=== PATIENT | male | born 1950 | race Caucasian/White ===

== ENCOUNTER 2020-05-06 04:56 | Inpatient (IN) | payer MEDICARE ==
[2020-05-06] MEDS ORDERED: NITROGLYCERIN SL TABS 0.4 MG TAB SUBLINGUAL STA (05:00)
[2020-05-06] MEDS ORDERED: MORPHINE SULFATE 4 MG/ML SYRINGE IV STA (05:00)
[2020-05-06 05:01] LABS: Glucose,Whole Blood 219 mg/dL (75-99)
[2020-05-06 05:20] LABS: Basophils # (A) 0.1 k/uL (0-0.2); Basophils % (A) 1 %; Eosinophils # (A) 0.4 k/uL (0-0.7); Eosinophils % (A) 3 %; HCT 41.3 % (39.0-53.0); HGB 12.6 gm/dL (13.0-17.5); Lymphocytes # (A) 1.3 k/uL (1.0-4.8); Lymphocytes % (A) 9 %; MCH 31.7 pg (25.0-35.0); MCHC 30.4 g/dL (31.0-37.0); Macrocytosis Slight; Mean Platelet Volume 8.5; Monocytes # (A) 0.5 k/uL (0-1.0); Monocytes % (A) 3 %; Neutrophils # (A) 13.2 k/uL (1.3-7.7); Neutrophils % (A) 84 %; Platelet Count 184 k/uL (150-450); RBC 3.97 m/uL (4.30-5.90); RDW 13.2 % (11.5-15.5); WBC 15.6 k/uL (3.8-10.6)
--- NOTE | 2020-05-06 05:27 | XR ---
EXAM: XR Chest, 1 View CLINICAL HISTORY: ITS.REASON XR Reason: dyspnea TECHNIQUE: Frontal view of the chest. COMPARISON: No relevant prior studies available. FINDINGS: Lungs: Increased interstitial markings. Mild atelectasis or small amount of fissural fluid in the right mid lung. No focal consolidation. Pleural space: Unremarkable. No pneumothorax. Heart: Heart size upper normal. Mediastinum: Unremarkable. Bones/joints: Unremarkable. Vasculature: Mild central vascular congestion. IMPRESSION: Findings may represent vascular congestion and mild interstitial edema.
[2020-05-06 05:31] LABS: Albumin 4.3 g/dL (3.5-5.0); Calcium 8.8 mg/dL (8.4-10.2); Magnesium 1.7 mg/dL (1.6-2.3); Total Bilirubin 0.5 mg/dL (0.2-1.3); Total Protein 6.9 g/dL (6.3-8.2)
[2020-05-06 05:49] LABS: INR 0.9 (<1.2); Partial Thromboplastin Time 22.3 sec (22.0-30.0); Prothrombin Time 9.4 sec (9.0-12.0)
[2020-05-06] MEDS ORDERED: FUROSEMIDE 10 MG/ML 2 ML VIAL IV STA (06:13)
--- NOTE | 2020-05-06 06:19 | ED ---
SOB HPI - General Chief Complaint: Shortness of Breath Stated Complaint: SELENE Time Seen by Provider: 05/06/20 04:58 Source: patient, EMS Mode of arrival: EMS Limitations: no limitations - History of Present Illness Initial Comments: this patient is 70-year-old man brought by ambulance to be evaluated for acute onset of dyspnea us morning. The patient had gone to bed feeling relatively well, and then woke up with shortness of breath that rapidly worsened. They called EMS who arrived to find him with pulse oximetry readings in the 70s. The patient was to, tachycardic, diaphoretic. They placed patient on CPAP and gave albuterol as well as steroid. Patient denies previous history of lung disease. MD Complaint: shortness of breath Onset/Timin -: hour(s) Severity scale (1-10): 0 Improves With: nothing Worsens With: exertion Associated Symptoms: denies other symptoms Treatments Prior to Arrival: oxygen, bronchodilator - Related Data Home Oxygen Therapy: No Home Medications Medication Instructions Recorded Confirmed Aspirin EC [Ecotrin Low Dose] 81 mg PO DAILY 05/06/20 05/06/20 Cinnamon Bark [Cinnamon] 500 mg PO DAILY 05/06/20 05/06/20 Glimepiride [Amaryl] 2 mg PO DAILY@1200 05/06/20 05/06/20 Simvastatin [Zocor] 20 mg PO DAILY@1700 05/06/20 05/06/20 lisinopriL [Zestril] 5 mg PO DAILY@0900 05/06/20 05/06/20 metFORMIN HCL [Glucophage] 1,000 mg PO BID@1200,2300 05/06/20 05/06/20 Allergies Allergy/AdvReac Type Severity Reaction Status Date / Time No Known Allergies Allergy Verified 05/06/20 07:12 Review of Systems ROS Statement: Those systems with pertinent positive or pertinent negative responses have been documented in the HPI. ROS Other: All systems not noted in ROS Statement are negative. Constitutional: Denies: fever, chills Respiratory: Reports: dyspnea. Denies: cough, wheezes, hemoptysis Cardiovascular: Reports: palpitations, orthopnea. Denies: chest pain, edema, syncope Gastrointestinal: Denies: abdominal pain, nausea, vomiting, diarrhea Genitourinary: Denies: dysuria, frequency Skin: Denies: rash Neurological: Denies: headache, weakness, numbness Psychiatric: Reports: anxiety Past Medical History Past Medical History: Diabetes Mellitus History of Any Multi-Drug Resistant Organisms: None Reported Past Surgical History: Tonsillectomy Additional Past Surgical History / Comment(s): orthopedic surgery Past Psychological History: No Psychological Hx Reported Smoking Status: Current some day smoker Past Alcohol Use History: None Reported Past Drug Use History: None Reported General Exam Limitations: no limitations General appearance: alert, in no apparent distress Head exam: Present: atraumatic, normocephalic Eye exam: Present: normal appearance. Absent: scleral icterus, conjunctival injection Neck exam: Present: normal inspection Respiratory exam: Present: respiratory distress, wheezes, accessory muscle use, decreased breath sounds. Absent: rales, rhonchi, stridor, chest wall tenderness Cardiovascular Exam: Present: normal rhythm, tachycardia, systolic murmur (harsh grade 4/6 systolic ejection murmur consistent with aortic stenosis). Absent: diastolic murmur, rubs, gallop GI/Abdominal exam: Present: soft. Absent: distended, tenderness, guarding, rebound, rigid, mass Extremities exam: Present: normal inspection, normal capillary refill. Absent: pedal edema, calf tenderness Back exam: Present: normal inspection. Absent: CVA tenderness (R), CVA tenderness (L) Neurological exam: Present: alert Skin exam: Present: warm, intact, diaphoretic. Absent: rash Course Vital Signs 05/06/20 05/06/20 05/06/20 04:56 05:07 05:20 Temperature 97.7 F Pulse Rate 102 H 93 Respiratory 26 H 20 20 Rate Blood Pressure 158/88 109/64 O2 Sat by Pulse 94 L 99 Oximetry 05/06/20 05/06/20 05/06/20 05:40 06:00 06:40 Temperature Pulse Rate 94 89 77 Respiratory 18 18 18 Rate Blood Pressure 94/58 99/59 105/63 O2 Sat by Pulse 99 99 98 Oximetry 05/06/20 05/06/20 05/06/20 06:48 07:00 08:00 Temperature Pulse Rate 84 74 Respiratory 19 18 18 Rate Blood Pressure 105/77 119/64 O2 Sat by Pulse 98 98 96 Oximetry 05/06/20 05/06/20 05/06/20 09:00 10:00 12:47 Temperature Pulse Rate 74 74 68 Respiratory 18 18 18 Rate Blood Pressure 125/74 126/69 125/70 O2 Sat by Pulse 97 96 94 L Oximetry Medical Decision Making - Lab Data Result diagrams: 05/06/20 05:05 05/06/20 05:05 Lab Results 05/06/20 05/06/20 05/06/20 Range/Units 04:58 05:05 05:05 WBC 15.6 H (3.8-10.6) k/uL RBC 3.97 L (4.30-5.90) m/uL Hgb 12.6 L (13.0-17.5) gm/dL Hct 41.3 (39.0-53.0) % MCV 104.0 H (80.0-100.0) fL MCH 31.7 (25.0-35.0) pg MCHC 30.4 L (31.0-37.0) g/dL RDW 13.2 (11.5-15.5) % Plt Count 184 (150-450) k/uL MPV 8.5 Neutrophils % 84 % Lymphocytes % 9 % Monocytes % 3 % Eosinophils % 3 % Basophils % 1 % Neutrophils # 13.2 H (1.3-7.7) k/uL Lymphocytes # 1.3 (1.0-4.8) k/uL Monocytes # 0.5 (0-1.0) k/uL Eosinophils # 0.4 (0-0.7) k/uL Basophils # 0.1 (0-0.2) k/uL Macrocytosis Slight PT 9.4 (9.0-12.0) sec INR 0.9 (<1.2) APTT 22.3 (22.0-30.0) sec D-Dimer 0.86 H (<0.60) mg/L FEU Sodium (137-145) mmol/L Potassium (3.5-5.1) mmol/L Chloride (98-107) mmol/L Carbon Dioxide (22-30) mmol/L Anion Gap mmol/L BUN (9-20) mg/dL Creatinine (0.66-1.25) mg/dL Est GFR (CKD-EPI)AfAm (>60 ml/min/1.73 sqM) Est GFR (CKD-EPI)NonAf (>60 ml/min/1.73 sqM) Glucose (74-99) mg/dL POC Glucose (mg/dL) 219 H (75-99) mg/dL POC Glu Media Coordinator ID Kelli Delaney Plasma Lactic Acid Son (0.7-2.0) mmol/L Calcium (8.4-10.2) mg/dL Magnesium (1.6-2.3) mg/dL Total Bilirubin (0.2-1.3) mg/dL AST (17-59) U/L ALT (4-49) U/L Alkaline Phosphatase (38-126) U/L Troponin I (0.000-0.034) ng/mL NT-Pro-B Natriuret Pep pg/mL Total Protein (6.3-8.2) g/dL Albumin (3.5-5.0) g/dL 05/06/20 05/06/20 05/06/20 Range/Units 05:05 05:05 05:05 WBC (3.8-10.6) k/uL RBC (4.30-5.90) m/uL Hgb (13.0-17.5) gm/dL Hct (39.0-53.0) % MCV (80.0-100.0) fL MCH (25.0-35.0) pg MCHC (31.0-37.0) g/dL RDW (11.5-15.5) % Plt Count (150-450) k/uL MPV Neutrophils % % Lymphocytes % % Monocytes % % Eosinophils % % Basophils % % Neutrophils # (1.3-7.7) k/uL Lymphocytes # (1.0-4.8) k/uL Monocytes # (0-1.0) k/uL Eosinophils # (0-0.7) k/uL Basophils # (0-0.2) k/uL Macrocytosis PT (9.0-12.0) sec INR (<1.2) APTT (22.0-30.0) sec D-Dimer (<0.60) mg/L FEU Sodium 141 (137-145) mmol/L Potassium 5.0 (3.5-5.1) mmol/L Chloride 112 H (98-107) mmol/L Carbon Dioxide 21 L (22-30) mmol/L Anion Gap 8 mmol/L BUN 27 H (9-20) mg/dL Creatinine 1.19 (0.66-1.25) mg/dL Est GFR (CKD-EPI)AfAm 71 (>60 ml/min/1.73 sqM) Est GFR (CKD-EPI)NonAf 61 (>60 ml/min/1.73 sqM) Glucose 243 H (74-99) mg/dL POC Glucose (mg/dL) (75-99) mg/dL POC Glu Media Coordinator ID Plasma Lactic Acid Son 1.2 (0.7-2.0) mmol/L Calcium 8.8 (8.4-10.2) mg/dL Magnesium 1.7 (1.6-2.3) mg/dL Total Bilirubin 0.5 (0.2-1.3) mg/dL AST 23 (17-59) U/L ALT 16 (4-49) U/L Alkaline Phosphatase 69 (38-126) U/L Troponin I 0.040 H* (0.000-0.034) ng/mL NT-Pro-B Natriuret Pep pg/mL Total Protein 6.9 (6.3-8.2) g/dL Albumin 4.3 (3.5-5.0) g/dL 05/06/20 Range/Units 05:05 WBC (3.8-10.6) k/uL RBC (4.30-5.90) m/uL Hgb (13.0-17.5) gm/dL Hct (39.0-53.0) % MCV (80.0-100.0) fL MCH (25.0-35.0) pg MCHC (31.0-37.0) g/dL RDW (11.5-15.5) % Plt Count (150-450) k/uL MPV Neutrophils % % Lymphocytes % % Monocytes % % Eosinophils % % Basophils % % Neutrophils # (1.3-7.7) k/uL Lymphocytes # (1.0-4.8) k/uL Monocytes # (0-1.0) k/uL Eosinophils # (0-0.7) k/uL Basophils # (0-0.2) k/uL Macrocytosis PT (9.0-12.0) sec INR (<1.2) APTT (22.0-30.0) sec D-Dimer (<0.60) mg/L FEU Sodium (137-145) mmol/L Potassium (3.5-5.1) mmol/L Chloride (98-107) mmol/L Carbon Dioxide (22-30) mmol/L Anion Gap mmol/L BUN (9-20) mg/dL Creatinine (0.66-1.25) mg/dL Est GFR (CKD-EPI)AfAm (>60 ml/min/1.73 sqM) Est GFR (CKD-EPI)NonAf (>60 ml/min/1.73 sqM) Glucose (74-99) mg/dL POC Glucose (mg/dL) (75-99) mg/dL POC Glu Media Coordinator ID Plasma Lactic Acid Son (0.7-2.0) mmol/L Calcium (8.4-10.2) mg/dL Magnesium (1.6-2.3) mg/dL Total Bilirubin (0.2-1.3) mg/dL AST (17-59) U/L ALT (4-49) U/L Alkaline Phosphatase (38-126) U/L Troponin I (0.000-0.034) ng/mL NT-Pro-B Natriuret Pep 1400 pg/mL Total Protein (6.3-8.2) g/dL Albumin (3.5-5.0) g/dL - EKG Data -: EKG Interpreted by Ia EKG shows normal: sinus rhythm, axis (left axis deviation), intervals (normal), QRS complexes (possible old septal infarct.), ST-T waves (normal) Rate: tachycardia (rate 102 BPM) Critical Care Time Critical Care Time: Yes (40 minutes) Disposition Clinical Impression: Congestive heart failure Disposition: ADMITTED IP TO THIS HOSP Condition: Fair Is patient prescribed a controlled substance at d/c from ED?: No
[2020-05-06 06:21] LABS: D-Dimer 0.86 mg/L FEU (<0.60)
--- NOTE | 2020-05-06 11:23 | CT ---
EXAMINATION TYPE: CT chest angio for PE DATE OF EXAM: 05/06/2020 COMPARISON: Chest x-ray earlier today. HISTORY: Shortness of breath CT DLP: 371.2 mGycm Automated exposure control for dose reduction was used. CONTRAST: CT Chest for pulmonary embolism performed with with IV Contrast, patient injected with 100 mL of Isov ue 370. FINDINGS: LUNGS: There are tiny bilateral pleural effusions with mild/moderate bibasilar atelectasis and/or con solidation. Upper to mid lungs are clear. No pneumothorax seen bilaterally. No suspicious masses. MEDIASTINUM: There is suboptimal bolus with near equal contrast in the right and left heart systems b ut no convincing CT evidence for acute pulmonary embolism. Satisfactory enhancement of aorta without aneurysm or dissection. Prominent bilateral hilar lymph nodes. Some prominent but subcentimeter media stinal lymph nodes. Borderline enlarged subcarinal lymph node. Cardiomegaly is present. Moderate left atrial and left ventricular dilatation. No pericardial effusion. Main pulmonary artery measures 3.[address] findings consistent with underlying pulmonary artery hypertension. OTHER: Bilateral subareolar gynecomastia. Underlying scoliosis. Multilevel spurring in the spine IMPRESSION: 1. No CT evidence for acute pulmonary embolism. 2. Cardiomegaly with tiny bilateral pleural effusions. Correlate for CHF exacerbation. Underlying pul monary artery hypertension and moderate left atrial and ventricular dilatation noted. [id number] e bibasilar atelectasis and/or limited acute infiltrate noted. Correlate clinically.
[2020-05-06] MEDS ORDERED: ASPIRIN 325 MG TAB PO STA (12:29)
--- NOTE | 2020-05-06 12:31 | P.CRDCN ---
History of Present Illness Consult date: 05/06/20 Chief complaint: shortness of breath History of present illness: This is a very pleasant 70-year-old gentleman who does not follow with any card iologist on regular basis with diabetes and hypertension and dyslipidemia and significant family history of coronary artery disease was brought to the emergency department by ambulance with shortness of breath. 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 No symptoms of chest pain or chest discomfort and no symptoms of arm or neck or shoulder discomfort and no abdominal discomfort. He did not feel good his called ambulance and he was brought to the emergency department. By ambulance patient was hypoxic with pulse oximetry reading around 70%. He was also slightly tachycardic and also he was diaphoretic. The patient is not aware of any history of coronary artery disease or congestive heart failure but she was told that he does have "heart murmur". No dizziness or lightheadedness and no feeling of heart racing or fluttering or syncope. The EKG showed sinus rhythm and it was sinus tachycardia when he presented to the emergency department without any ischemic ST or T-wave abnormalities. The troponin came in to be abnormal. The chest x-ray showed findings consistent with fluid overload. The computed tomography scan of the chest showed no PE but also finding with small bilateral pleural effusion. Also there is evidence of pulmonary hypertension. The rest of his blood work overall came in to be unremarkable. Currently the patient is feeling better and he is also hemodynamically stable. He denies any symptoms of chest pain or chest discomfort at this point and he stated that he is not short of breath laying flat in bed. We consulted to see the patient because of the abnormal troponin. The patient does have fairly significant family history of coronary artery disease involving his father as well as his brother. Beside that he does have multiple risk factors for coronary artery disease. On examination he does have very significant systolic murmur at the right and left upper sternal border consistent with aortic stenosis at least in the moderate range. There is diminished in the intensity of S2. At this point I'm going to start the patient on aspirin as well as heparin IV. We'll consider starting the patient on anti- ischemic medication with beta mary and also add statin. Obtain an echocardiogram was Doppler to assess ejection fraction and the severity of aortic stenosis. Consider coronary angiogram and probably consider JAYSON to evaluate the aortic valve down the line. Also on examination he does have mild bilateral expiratory wheezing with diminished breathing sounds mainly on the left compared to the right. Past Medical History Past Medical History: Diabetes Mellitus History of Any Multi-Drug Resistant Organisms: None Reported Past Surgical History: Tonsillectomy Additional Past Surgical History / Comment(s): orthopedic surgery Past Psychological History: No Psychological Hx Reported Smoking Status: Current some day smoker Past Alcohol Use History: None Reported Past Drug Use History: None Reported Medications and Allergies Home Medications Medication Instructions Recorded Confirmed Type Aspirin EC [Ecotrin Low Dose] 81 mg PO DAILY 05/06/20 05/06/20 History Cinnamon Bark [Cinnamon] 500 mg PO DAILY 05/06/20 05/06/20 History Glimepiride [Amaryl] 2 mg PO DAILY@1200 05/06/20 05/06/20 History Simvastatin [Zocor] 20 mg PO DAILY@1700 05/06/20 05/06/20 History lisinopriL [Zestril] 5 mg PO DAILY@0900 05/06/20 05/06/20 History metFORMIN HCL [Glucophage] 1,000 mg PO BID@1200,2300 05/06/20 05/06/20 History Allergies Allergy/AdvReac Type Severity Reaction Status Date / Time No Known Allergies Allergy Verified 05/06/20 07:12 Physical Exam Vitals: Vital Signs Temp Pulse Resp BP Pulse Ox 05/06/20 10:00 74 18 126/69 96 05/06/20 09:00 74 18 125/74 97 05/06/20 08:00 74 18 119/64 96 05/06/20 07:00 84 18 105/77 98 05/06/20 06:48 19 98 05/06/20 06:40 77 18 105/63 98 05/06/20 06:00 89 18 99/59 99 05/06/20 05:40 94 18 94/58 99 05/06/20 05:20 93 20 109/64 99 05/06/20 05:07 20 05/06/20 04:56 97.7 F 102 H 26 H 158/88 94 L Intake and Output 05/05/20 05/06/20 05/06/20 22:59 06:59 14:59 Other: Weight 84.822 kg - Constitutional General appearance: no acute distress - Respiratory Respiratory: bilateral: wheezing - Cardiovascular Rhythm: regular Heart sounds: normal: S1, S2 Abnormal Heart Sounds: systolic murmur Results 05/06/20 05:05 05/06/20 05:05 Cardiac Enzymes 05/06/20 05/06/20 05/06/20 Range/Units 05:05 05:05 07:43 AST 23 (17-59) U/L Troponin I 0.040 H* 0.111 H* (0.000-0.034) ng/mL 05/06/20 Range/Units 10:46 AST (17-59) U/L Troponin I 0.128 H* (0.000-0.034) ng/mL Coagulation 05/06/20 Range/Units 05:05 PT 9.4 (9.0-12.0) sec APTT 22.3 (22.0-30.0) sec CBC 05/06/20 Range/Units 05:05 WBC 15.6 H (3.8-10.6) k/uL RBC 3.97 L (4.30-5.90) m/uL Hgb 12.6 L (13.0-17.5) gm/dL Hct 41.3 (39.0-53.0) % Plt Count 184 (150-450) k/uL Comprehensive Metabolic Panel 05/06/20 Range/Units 05:05 Sodium 141 (137-145) mmol/L Potassium 5.0 (3.5-5.1) mmol/L Chloride 112 H (98-107) mmol/L Carbon Dioxide 21 L (22-30) mmol/L BUN 27 H (9-20) mg/dL Creatinine 1.19 (0.66-1.25) mg/dL Glucose 243 H (74-99) mg/dL Calcium 8.8 (8.4-10.2) mg/dL AST 23 (17-59) U/L ALT 16 (4-49) U/L Alkaline Phosphatase 69 (38-126) U/L Total Protein 6.9 (6.3-8.2) g/dL Albumin 4.3 (3.5-5.0) g/dL Current Medications Generic Name Dose Route Start Last Admin Trade Name Freq PRN Reason Stop Dose Admin Aspirin 325 mg 05/07/20 09:00 Aspirin 325 Mg Tab PO DAILY ALIVIA Heparin Sodium/Sodium Chloride 250 mls @ 10.009 mls/hr 05/06/20 12:15 25,000 unit/ Sodium Chloride IV .Q24H [facility] Protocol 11.8 UNITS/KG/HR Sodium Chloride 10 ml 05/06/20 09:00 05/06/20 08:12 Sodium Chloride 0.9% Flush 10 Ml Syringe IV 10 ml BID [facility] Administration Intake and Output 05/05/20 05/06/20 05/06/20 22:59 06:59 14:59 Other: Weight 84.822 kg 05/06/20 05:05 05/06/20 05:05 Assessment and Plan Assessment: Assessment #1 heart failure likely secondary to aortic stenosis #2 acute non-ST patient myocardial infarction #3 multiple risk factors including diabetes and hypertension and dyslipidemia #4 family history of CAD Plan #1 add heparin to the current medical regimen #2 add aspirin to the current medical regimen #3 consider adding beta mary as well as a statin #4 obtain an echocardiogram was Doppler #5 consider transesophageal echocardiogram and heart catheterization #6 follow-up with the patient
[2020-05-06] MEDS: HEPARIN SOD,PORK IN 0.45% NACL 25,000 UNIT in 0.45% NACL 1 250ML.BAG IV SCH (12:45)
[2020-05-06] MEDS ORDERED: ATORVASTATIN 10 MG TAB PO SCH (17:00)
[2020-05-06 17:03] LABS: Glucose,Whole Blood 291 mg/dL (75-99)
[2020-05-06 18:52] LABS: INR 0.9 (<1.2); Partial Thromboplastin Time 26.2 sec (22.0-30.0); Prothrombin Time 9.6 sec (9.0-12.0)
--- NOTE | 2020-05-06 19:30 | P.HPIM ---
History of Present Illness H&P Date: 05/06/20 Chief Complaint: Short of breath History of presenting complaint: This is a 70-year-old patient of Dr. Rafael Valdez. Chronic stable medical conditions include diabetes, hypertension, hyperlipidemia. Patient last night got to the bathroom his usual routine and noted that he was rather short of breath. He could not get his breath and had to sit at the edge of the bed. There is no chest pain no cough no edema no fever no chills. Finally decided to come in. Troponins were found to be elevated and found to be in pulmonary edema. Given IV Lasix. Feeling slightly better after that. No prior history of coronary artery disease. Cardiology was consulted. Review of systems: GEN.: Tired EYES: None HEENT: None NECK: None RESPIRATORY: As above CARDIOVASCULAR: As above GASTROINTESTINAL: None GENITOURINARY: None MUSCULOSKELETAL: None LYMPHATICS: None HEMATOLOGICAL: None PSYCHIATRY: None NEUROLOGICAL: None Past medical history to include: Diabetes, hypertension, hyperlipidemia Social history: Smokes about half a pack a day. . Retired from factory work. No significant alcohol history. Physical examination: VITAL SIGNS: 97.7, 102, 26, bun 58 x 88, 94% with BiPAP GENERAL: BMI 28.7, sitting up, slightly short of breath. EYES: Pupils equal. Conjunctiva normal. HEENT: External appearance of nose and ears normal, oral cavity grossly normal. NECK: JVD unable to assess; masses not palpable. HEART: First and second heart sounds are normal; ejection systolic murmur in the aortic area, no edema. LUNGS: Respiratory rate increased; decreased breath sounds. ABDOMEN: Soft, nontender, liver spleen not palpable, no masses palpable. PSYCH: Alert and oriented x3; mood and affect normal. NEUROLOGICAL: Cranial nerves grossly intact; no facial asymmetry, power and sensation grossly intact. LYMPHATICS: No lymph nodes palpable in the axilla and neck INVESTIGATIONS, reviewed in the clinical context: White count 15.6 hemoglobin 12.6 platelets 184 potassium 5 creatinine 1.19 Glucose 243- 291 ProBNP 1400 Troponin I 0.040, 0.111, 0.128 EKG tracing personally reviewed by me-poor R-wave progression, sinus rhythm Chest x-ray film personally reviewed by me-pulmonary edema Computed tomography scan of the chest PE protocol-cardiomegaly, pulmonary artery hypertension, Assessment: -Acute non-ST elevation myocardial infarction-silent -Acute congestive heart failure from acute [place], EF not known -Diabetes mellitus type 2-uncontrolled with hyperglycemia -Essential hypertension -Hyperlipidemia Plan: Home medications resumed. Accu-Cheks will be followed. IV Lasix. Does use a consulted. Patient is on aspirin. Increase Lipitor to 40 mg daily at bedtime. Care was discussed with the patient. Questions answered. Check labs in the morning. 2-D echocardiogram. Past Medical History Past Medical History: Diabetes Mellitus History of Any Multi-Drug Resistant Organisms: None Reported Past Surgical History: Tonsillectomy Additional Past Surgical History / Comment(s): orthopedic surgery Past Psychological History: No Psychological Hx Reported Smoking Status: Current some day smoker Past Alcohol Use History: None Reported Past Drug Use History: None Reported Medications and Allergies Home Medications Medication Instructions Recorded Confirmed Type Aspirin EC [Ecotrin Low Dose] 81 mg PO DAILY 05/06/20 05/06/20 History Cinnamon Bark [Cinnamon] 500 mg PO DAILY 05/06/20 05/06/20 History Glimepiride [Amaryl] 2 mg PO DAILY@1200 05/06/20 05/06/20 History Simvastatin [Zocor] 20 mg PO DAILY@1700 05/06/20 05/06/20 History lisinopriL [Zestril] 5 mg PO DAILY@0900 05/06/20 05/06/20 History metFORMIN HCL [Glucophage] 1,000 mg PO BID@1200,2300 05/06/20 05/06/20 History Allergies Allergy/AdvReac Type Severity Reaction Status Date / Time No Known Allergies Allergy Verified 05/06/20 07:12 Physical Exam Vitals: Vital Signs Temp Pulse Resp BP Pulse Ox 05/06/20 10:00 74 18 126/69 96 05/06/20 09:00 74 18 125/74 97 05/06/20 08:00 74 18 119/64 96 05/06/20 07:00 84 18 105/77 98 05/06/20 06:48 19 98 05/06/20 06:40 77 18 105/63 98 05/06/20 06:00 89 18 99/59 99 05/06/20 05:40 94 18 94/58 99 05/06/20 05:20 93 20 109/64 99 05/06/20 05:07 20 05/06/20 04:56 97.7 F 102 H 26 H 158/88 94 L Intake and Output 05/05/20 05/06/20 05/06/20 22:59 06:59 14:59 Other: Weight 84.822 kg Results CBC & Chem 7: 05/06/20 05:05 05/06/20 05:05 Labs: Abnormal Lab Results - Last 24 Hours (Table) 05/06/20 05/06/20 05/06/20 Range/Units 04:58 05:05 05:05 WBC 15.6 H (3.8-10.6) k/uL RBC 3.97 L (4.30-5.90) m/uL Hgb 12.6 L (13.0-17.5) gm/dL MCV 104.0 H (80.0-100.0) fL MCHC 30.4 L (31.0-37.0) g/dL Neutrophils # 13.2 H (1.3-7.7) k/uL D-Dimer 0.86 H (<0.60) mg/L FEU Chloride (98-107) mmol/L Carbon Dioxide (22-30) mmol/L BUN (9-20) mg/dL Glucose (74-99) mg/dL POC Glucose (mg/dL) 219 H (75-99) mg/dL Troponin I (0.000-0.034) ng/mL 05/06/20 05/06/20 05/06/20 Range/Units 05:05 05:05 07:43 WBC (3.8-10.6) k/uL RBC (4.30-5.90) m/uL Hgb (13.0-17.5) gm/dL MCV (80.0-100.0) fL MCHC (31.0-37.0) g/dL Neutrophils # (1.3-7.7) k/uL D-Dimer (<0.60) mg/L FEU Chloride 112 H (98-107) mmol/L Carbon Dioxide 21 L (22-30) mmol/L BUN 27 H (9-20) mg/dL Glucose 243 H (74-99) mg/dL POC Glucose (mg/dL) (75-99) mg/dL Troponin I 0.040 H* 0.111 H* (0.000-0.034) ng/mL
[2020-05-06] MEDS ORDERED: HEPARIN SODIUM,PORCINE 5,000 UNIT/ML 1 ML VIAL IV PRN (19:37)
--- NOTE | 2020-05-06 19:43 | ECHOF ---
Referral Reason:Heart Failure MEASUREMENTS -------- HEIGHT: 180.3 cm WEIGHT: 84.8 kg BP: 105/77 IVSd: 1.5 cm (0.6 - 1.1) LVIDd: 5.3 cm (3.9 - 5.3) LVPWd: 1.2 cm (0.6 - 1.1) IVSs: 1.8 cm LVIDs: 4.2 cm LVPWs: 1.8 cm LAESV Index (A-L): 71.06 ml/m Ao Diam: 2.5 cm (2.0 - 3.7) LA Diam: 3.7 cm (2.7 - 3.8) AV Cusp: 1.5 cm (1.5 - 2.6) EPSS: 2.6 cm MV E Jonny: 1.04 m/s MV DecT: 203 ms MV A Jonny: 1.10 m/s MV E/A Ratio: 0.95 AV maxP.32 mmHg AV meanP.46 mmHg AR PHT: 702 ms RAP: 5.00 mmHg RVSP: 35.34 mmHg %FS: 22.11 % EDV(Teich): 223.18 ml EF(Teich): 43.60 % ESV(Teich): 125.88 ml IVSd: 1.15 cm (0.6 - 1.1) IVSs: 1.67 cm LVIDd: 6.59 cm (3.9 - 5.3) LVIDs: 5.14 cm LVPWd: 1.25 cm (0.6 - 1.1) LVPWs: 1.77 cm MV EF SLOPE: 47.87 mm/s (70 - 150) MV EXCURSION: 15.27 mm (> 18.000) SV(Teich): 97.29 ml FINDINGS -------- This was a technically difficult study with suboptimal views. The left ventricular size is normal. There is mild concentric left ventricular hypertrophy. Overa ll left ventricular systolic function is moderately impaired with, an EF between 35 - 40 %. Increas ed LAP. Grade 3 Diastolic Dysfunction. The right ventricle is normal in size. LA is severely dilated >40 ml/m2 The right atrial size is normal. Aortic valve is trileaflet and is moderately thickened. There is mild aortic regurgitation. There is tnmywtgv-ha-mclhyn aortic stenosis present. Peak/mean gradient across the Aortic Valve is 50.32 mmHg / 32.46mmHg. The mitral valve is normal. The mitral valve leaflets are mildly thickened. Mild mitral regurgita tion is present. The tricuspid valve appears structurally normal. Mild tricuspid regurgitation present. There is b orderline pulmonary artery hypertension. The right ventricular systolic pressure, as measured by Do ppler, is 35.34mmHg. There is no pulmonic regurgitation present. The aortic root size is normal. IVC Not well visulized. There is no pericardial effusion. 5.0mg of Lumason was utilized for enhancement of images CONCLUSIONS -------- 1. The left ventricular size is normal. 2. There is mild concentric left ventricular hypertrophy. 3. Overall left ventricular systolic function is moderately impaired with, an EF between 35 - 40 %. 4. Increased LAP. Grade 3 Diastolic Dysfunction. 5. LA is severely dilated >40 ml/m2 6. Aortic valve is trileaflet and is moderately thickened. 7. There is mild aortic regurgitation. 8. There is iaqwzhmf-cw-bmwxtv aortic stenosis present. 9. Peak/mean gradient across the Aortic Valve is 50.32mmHg / 32.46mmHg. 10. The mitral valve leaflets are mildly thickened. 11. Mild mitral regurgitation is present. 12. Mild tricuspid regurgitation present. 13. There is borderline pulmonary artery hypertension. 14. The right ventricular systolic pressure, as measured by Doppler, is 35.34mmHg. 15. There is no pericardial effusion. [employer] MANAGER: Kala Ann RDCS
[2020-05-06] MEDS: FUROSEMIDE 10 MG/ML 2 ML VIAL IV SCH (20:09)
[2020-05-06 20:25] LABS: Glucose,Whole Blood 253 mg/dL (75-99)
[2020-05-06] MEDS: INSULIN ASPART (NovoLOG) 100 UNIT/ML VIAL SQ SCH (20:36)
[2020-05-06] MEDS ORDERED: ATORVASTATIN 40 MG TAB PO SCH (21:00)
[2020-05-06] MEDS: metFORMIN 500 MG TAB PO SCH (23:35)
[2020-05-06 23:39] VITALS: RESP 18
[2020-05-07] MEDS: INSULIN ASPART (NovoLOG) 100 UNIT/ML VIAL SQ SCH ×2 (06:21→12:15)
[2020-05-07 06:22] LABS: Glucose,Whole Blood 187 mg/dL (75-99)
[2020-05-07] MEDS ORDERED: lisinopriL 5 MG TAB PO SCH (09:00)
[2020-05-07] MEDS ORDERED: NON FORMULARY DRUG (Aspirin Ec 81 MG Tablet.Dr) PO SCH (09:00)
[2020-05-07] MEDS ORDERED: NON FORMULARY DRUG (Cinnamon Bark [Cinnamon] 500 MG Capsule) PO SCH (09:00)
[2020-05-07] MEDS ORDERED: ASPIRIN 325 MG TAB PO SCH (09:00)
[2020-05-07] MEDS: FUROSEMIDE 10 MG/ML 2 ML VIAL IV SCH (09:26)
[2020-05-07 11:07] LABS: Potassium 4.9 mmol/L (3.5-5.1)
[2020-05-07 11:40] LABS: Glucose,Whole Blood 175 mg/dL (75-99)
[2020-05-07] MEDS ORDERED: GLIMEPIRIDE 2 MG TAB PO SCH (12:00)
[2020-05-07] MEDS: HEPARIN SOD,PORK IN 0.45% NACL 25,000 UNIT in 0.45% NACL 1 250ML.BAG IV SCH (12:10)
[2020-05-07] MEDS: metFORMIN 500 MG TAB PO SCH (12:16)
--- NOTE | 2020-05-07 12:20 | P.PN ---
Subjective Progress Note Date: 05/07/20 This is a pleasant 70-year-old gentleman with documented history of hypertension, diabetes, hyperlipidemia, family history of premature coronary artery disease and was brought to the hospital with symptoms of shortness of breath. He was seen in consultation yesterday by Dr. Norris. Patient was i nitiated on IV Lasix and diuresed well from that. His EKG on presentation here revealed sinus rhythm, sinus tachycardia without any significant ST-T wave changes in his troponins came back to be normal. His chest x-ray on admission was consistent with congestive cardiac failure. Blood pressure this morning 110/60 with a heart rate in the 70s, 96% on room air. Sodium 140, potassium 4.9, BUN 37, creatinine 1.3. Patient diuresed well through the night last night, his weight is not reflective of this. Echocardiogram with Doppler study revealed an ejection fraction of 35-40%. Moderate to severe aortic stenosis with a peak/mean gradient across the aortic valve of 50.3 over 32.4 mg of mercur y. Patient was seen and examined this morning, overall feels well. Patient will require a cardiac catheterization as well as a JAYSON, recommendation from Dr. Norris's that the patient be discharged home, and have those procedures performed as an outpatient. Objective - Vital Signs Vital signs: Vital Signs Temp 97.9 F 05/07/20 03:15 Pulse 72 05/07/20 03:15 Resp 18 05/07/20 03:15 BP 111/63 05/07/20 03:15 Pulse Ox 96 05/07/20 03:15 Intake & Output 05/06/20 05/07/20 05/07/20 18:59 06:59 18:59 Intake Total 260 174.231 106.007 Output Total 300 300 Balance -40 -125.769 106.007 Weight 90.6 kg Intake: IV 20 30 Invasive Line 2 20 30 Intake, IV Titration 144.231 106.007 Amount Heparin Sod,Pork in 0.45% 144.231 106.007 NaCl 25,000 unit In 0.45 % NaCl 1 250ml.bag @ 11.8 UNITS/KG/HR 10.009 mls/ hr IV .Q24H ALIVIA Rx#: [id number] Oral 240 Output: Urine 300 300 Other: # Voids 1 - Exam PHYSICAL EXAMINATION: GENERAL: 70-year-old gentleman in no acute distress at the time of my examination HEENT: Head is atraumatic, normocephalic. Pupils equal, round. Sclera anicteric. Conjunctiva are clear. Mucous membranes of the mouth are moist. Neck is supple. There is no elevated jugular venous pressure. No carotid bruit is heard. HEART EXAMINATION: Heart S1 S2 1 systolic murmur is heard CHEST EXAMINATION: Lungs are clear to auscultation and precussion. No chest wall tenderness is noted on palpation or with deep breathing. ABDOMEN: Soft, nontender. Bowel sounds are heard. No organomegaly noted. EXTREMITIES: 2+ peripheral pulses with no evidence of peripheral edema and no calf tenderness noted. NEUROLOGIC patient is awake, alert and oriented 3 . . - Labs CBC & Chem 7: 05/06/20 05:05 05/07/20 09:52 Labs: Abnormal Lab Results - Last 24 Hours (Table) 05/06/20 05/06/20 05/07/20 Range/Units 16:58 20:24 00:49 APTT 36.7 H (22.0-30.0) sec Chloride (98-107) mmol/L BUN (9-20) mg/dL Creatinine (0.66-1.25) mg/dL Glucose (74-99) mg/dL POC Glucose (mg/dL) 291 H 253 H (75-99) mg/dL 05/07/20 05/07/20 05/07/20 Range/Units 06:20 09:52 09:52 APTT 30.1 H (22.0-30.0) sec Chloride 109 H (98-107) mmol/L BUN 37 H (9-20) mg/dL Creatinine 1.32 H (0.66-1.25) mg/dL Glucose 162 H (74-99) mg/dL POC Glucose (mg/dL) 187 H (75-99) mg/dL 05/07/20 Range/Units 11:38 APTT (22.0-30.0) sec Chloride (98-107) mmol/L BUN (9-20) mg/dL Creatinine (0.66-1.25) mg/dL Glucose (74-99) mg/dL POC Glucose (mg/dL) 175 H (75-99) mg/dL Assessment and Plan Plan: Assessment and plan #1 systolic congestive heart failure acute on chronic #2 moderate to severe aortic stenosis #3 non-ST elevation myocardial infarction #4 family history of premature coronary artery disease #5 diabetes #6 hypertension #7 hyperlipidemia #8 cardiomyopathy, unsure at this point of the type of cardiomyopathy. Plan We will discontinue the IV Lasix, decrease aspirin 81 mg daily, continue Lipitor 40 mg daily, start by mouth Lasix, discontinue IV heparin, continue lisinopril, add a small dose of beta mary, add a small dose of Aldactone. From cardiology's perspective, patient may be able to be discharged home today. We'll make him a follow-up appointment to see Dr. Norris in the office in one week, outpatient JAYSON and cardiac catheterization will be performed. DNP note has been reviewed, I agree with a documented findings and plan of care. Patient was seen and examined.
[2020-05-07] MEDS ORDERED: METOPROLOL SUCCINATE (ER) 25 MG TAB.ER.24H PO SCH (12:30)
[2020-05-07 13:20] VITALS: PULSE 80
[2020-05-07 13:22] VITALS: BP 124/74; TEMP 97.4
[2020-05-07 15:05] VITALS: BMI 28.6
--- NOTE | 2020-05-07 20:34 | P.DS ---
Providers Date of admission: 05/06/20 06:56 Expected date of discharge: 05/07/20 Attending physician: Fer Zuñiga Consults: 05/06/20 06:55 Consult Physician Routine Consulting Provider: Brian Talavera Consult Reason/Comments: CHF. Aortic stenosis Do you want consulting provider notified?: Yes Primary care physician: Rafael Valdez MD Hospital Course: Chief Complaint: Short of breath History of presenting complaint: This is a 70-year-old patient of Dr. Rafael Valdez. Chronic stable medical conditions include diabetes, hypertension, hyperlipidemia. Patient last night got to the bathroom his usual routine and noted that he was rather short of breath. He could not get his breath and had to sit at the edge of the bed. There is no chest pain no cough no edema no fever no chills. Finally decided to come in. Troponins were found to be elevated and found to be in pulmonary edema. Given IV Lasix. Feeling slightly better after that. No prior history of coronary artery disease. 2-D echo confirmed moderate to severe aortic stenosis with a peak-mean gradient of 50/32. Today-patient feeling much better. IV Lasix discontinued. Medication adjusted. Seen by Dr. Mcallister from [facility]. Patient have an outpatient JAYSON and cardiac catheterization. Repeat BMP as an outpatient. May need to follow-up with nephrology as an outpatient. Consultation: Dr. Norris from cardiology Physical examination: VITAL SIGNS: 97.4, 70, 16, 124/74, 97% room air GENERAL: Sitting up in a chair, comfortable. EYES: Pupils equal. Conjunctiva normal. NECK: JVD unable to assess; masses not palpable. HEART: First and second heart sounds are normal; ejection systolic murmur in the aortic area, no edema. LUNGS: Respiratory rate increased; decreased breath sounds. ABDOMEN: Soft, nontender, liver spleen not palpable, no masses palpable. PSYCH: Alert and oriented x3; mood and affect normal. INVESTIGATIONS, reviewed in the clinical context: Potassium 4.9 bun 37 creatinine 1.32 Previous testin-D echocardiogram-moderate to severe aortic stenosis with a peak-mean gradient of 50/32. EF 35-40% White count 15.6 hemoglobin 12.6 platelets 184 potassium 5 creatinine 1.19 Glucose 243- 291 ProBNP 1400 Troponin I 0.040, 0.111, 0.128 EKG tracing personally reviewed by me-poor R-wave progression, sinus rhythm Chest x-ray film personally reviewed by me-pulmonary edema Computed tomography scan of the chest PE protocol-cardiomegaly, pulmonary artery hypertension, Assessment: -Acute non-ST elevation myocardial infarction-silent -Acute congestive heart failure from systolic dysfunction, EF 35-40% -Diabetes mellitus type 2-uncontrolled with hyperglycemia -Essential hypertension -Hyperlipidemia -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 Disposition: Home Patient Condition at Discharge: Stable Plan - Discharge Summary Discharge Rx Participant: No New Discharge Prescriptions: New Spironolactone [Aldactone] 25 mg PO DAILY #30 tab Furosemide [Lasix] 40 mg PO DAILY #30 tab Atorvastatin [Lipitor] 40 mg PO HS #30 tab Metoprolol Succinate (ER) [Toprol XL] 25 mg PO DAILY #30 tab.er.24h Continue metFORMIN HCL [Glucophage] 1,000 mg PO BID@1200,2300 Aspirin EC [Ecotrin Low Dose] 81 mg PO DAILY Glimepiride [Amaryl] 2 mg PO DAILY@1200 lisinopriL [Zestril] 5 mg PO DAILY@0900 Discontinued Simvastatin [Zocor] 20 mg PO DAILY@1700 No Action Cinnamon Bark [Cinnamon] 500 mg PO DAILY Discharge Medication List Aspirin EC [Ecotrin Low Dose] 81 mg PO DAILY 05/06/20 [History] Cinnamon Bark [Cinnamon] 500 mg PO DAILY 05/06/20 [History] Glimepiride [Amaryl] 2 mg PO DAILY@1200 05/06/20 [History] lisinopriL [Zestril] 5 mg PO DAILY@0900 05/06/20 [History] metFORMIN HCL [Glucophage] 1,000 mg PO BID@1200,2300 05/06/20 [History] Atorvastatin [Lipitor] 40 mg PO HS #30 tab 05/07/20 [Rx] Furosemide [Lasix] 40 mg PO DAILY #30 tab 05/07/20 [Rx] Metoprolol Succinate (ER) [Toprol XL] 25 mg PO DAILY #30 tab.er.24h 05/07/20 [Rx] Spironolactone [Aldactone] 25 mg PO DAILY #30 tab 05/07/20 [Rx] Follow up Appointment(s)/Referral(s): Rafael Valdez MD [Primary Care Provider] - 1-2 days (the office will call you with follow up appointment) Frandy Mcallister MD [STAFF PHYSICIAN] - 05/12/20 10:30 am Patient Instructions/Handouts: Heart Failure (DC) Activity/Diet/Wound Care/Special Instructions: BMP-5 days Discharge Disposition: HOME SELF-CARE
[2020-05-08] MEDS ORDERED: ASPIRIN 81 MG PO SCH (09:00)
[2020-05-08] MEDS ORDERED: FUROSEMIDE 40 MG TAB PO SCH (09:00)
[2020-05-08] MEDS ORDERED: SPIRONOLACTONE 25 MG TAB PO SCH (09:00)
== END 2020-05-07 15:24 | disposition home or self-care (01) | DRG 280 ==
LOC: EC 04:56 → 3SCARD 06:56 → 3NCARDOBS 05-07 03:32 → UNDOLOA 05-07 03:32 → 3NCARDOBS 05-07 03:42 → 3SCARD 05-07 03:42
PROVIDERS: ADMIT Hospitalist; ATTEND Hospitalist
DX: I13.0 Hypertensive heart and chronic kidney disease with heart failure and stage 1 through stage 4 chronic kidney disease, or unspecified chronic kidney disease (principal); I21.4 Non-ST elevation (NSTEMI) myocardial infarction; I50.23 Acute on chronic systolic (congestive) heart failure; I27.20 Pulmonary hypertension, unspecified; I42.9 Cardiomyopathy, unspecified; E11.22 Type 2 diabetes mellitus with diabetic chronic kidney disease; N18.30 Chronic kidney disease, stage 3 unspecified; E11.65 Type 2 diabetes mellitus with hyperglycemia; E78.5 Hyperlipidemia, unspecified; F17.210 Nicotine dependence, cigarettes, uncomplicated; I35.0 Nonrheumatic aortic (valve) stenosis; R09.02 Hypoxemia; Z79.82 Long term (current) use of aspirin; Z79.84 Long term (current) use of oral hypoglycemic drugs; Z79.899 Other long term (current) drug therapy; Z90.89 Acquired absence of other organs; Z87.898 Personal history of other specified conditions; Z82.49 Family history of ischemic heart disease and other diseases of the circulatory system
CPT/HCPCS: 36415; 71045; 71275; 80048; 80053; 83605; 83735; 83880; 84484; 85025; 85379; 85610; 85730; 93005; 93306; 94660; 96365; 96366; 96375; 99291

== ENCOUNTER 2020-05-18 07:27 | Day surgery (SDC) | payer MEDICARE ==
[2020-05-13 11:44] VITALS: BMI 27.1
[~2020-05-18 07:27] MED LIST: ALPRAZolam 0.25 MG TAB PO PRN; ALPRAZolam 0.5 MG TAB PO PRN; ASPIRIN 325 MG TAB PO ONE; NITROGLYCERIN SL TABS 0.4 MG TAB SUBLINGUAL PRN; SODIUM CHLORIDE 0.9% 1,000 ML in EMPTY BAG 1 BAG IV ONE
[2020-05-18] MEDS ORDERED: SODIUM CHLORIDE 0.9% 1,000 ML IV ONE (07:41)
[2020-05-18 07:54] LABS: Glucose,Whole Blood 113 mg/dL (75-99)
[2020-05-18 07:58] VITALS: RESP 16; TEMP 98.2
[2020-05-18 08:06] LABS: Basophils # (A) 0.1 k/uL (0-0.2); Basophils % (A) 1 %; Eosinophils # (A) 0.4 k/uL (0-0.7); Eosinophils % (A) 4 %; HGB 13.9 gm/dL (13.0-17.5); Lymphocytes # (A) 1.5 k/uL (1.0-4.8); Lymphocytes % (A) 14 %; MCH 33.8 pg (25.0-35.0); MCHC 33.2 g/dL (31.0-37.0); MCV 101.7 fL (80.0-100.0); Mean Platelet Volume 8.1; Monocytes # (A) 0.5 k/uL (0-1.0); Monocytes % (A) 5 %; Neutrophils % (A) 75 %; Platelet Count 198 k/uL (150-450); RBC 4.13 m/uL (4.30-5.90); RDW 12.3 % (11.5-15.5); WBC 10.6 k/uL (3.8-10.6)
[2020-05-18] MEDS ORDERED: fentaNYL (PF) 50 MCG/ML 2 ML AMP ONE (08:31)
[2020-05-18] MEDS ORDERED: IV FLUID CONTINUATION 1,000 ML IV ONE (08:35)
[2020-05-18] MEDS ORDERED: fentaNYL (PF) 50 MCG/ML 2 ML AMP IV ONE (08:50)
[2020-05-18] MEDS ORDERED: MIDAZOLAM 2 MG/2 ML VIAL IV ONE ×2 (08:50→08:51)
[2020-05-18] MEDS ORDERED: BENZOCAINE SPRAY 1 CAN MUCOUS MEM ONE (08:50)
[2020-05-18] MEDS ORDERED: VERAPAMIL 2.5 MG/ML 2 ML AMP ONE (09:51)
[2020-05-18] MEDS ORDERED: LIDOCAINE 1% INJ 10MG/ML (20 ML MDV) ONE (09:52)
[2020-05-18] MEDS ORDERED: HEPARIN SODIUM 1,000 UN/ML (10ML VL) ONE (09:54)
[2020-05-18] MEDS ORDERED: LIDOCAINE 1% INJ 10MG/ML (20 ML MDV) SQ ONE (10:04)
[2020-05-18] MEDS ORDERED: VERAPAMIL SYRINGE (5 MG/10 ML) INTRAARTER ONE ×2 (10:05→10:12)
[2020-05-18] MEDS ORDERED: HEPARIN SODIUM 1,000 UN/ML (10ML VL) IV ONE (10:06)
[2020-05-18] MEDS ORDERED: IOPAMIDOL-370 125ML BTL INJ ONE (10:11)
[2020-05-18] MEDS ORDERED: RX INFO: IV CONTRAST WAS GIVEN 1 EACH MISC MISCELLANE PRN (10:17)
[2020-05-18] MEDS ORDERED: SODIUM CHLORIDE 0.9% 1,000 ML IV SCH (10:30)
--- NOTE | 2020-05-18 10:59 | ECHOT ---
TRANSESOPHAGEAL ECHOCARDIOGRAM DATE OF SERVICE: 05/18/2020 PERFORMING PHYSICIAN: Frandy Mcallister MD. PROCEDURE PERFORMED: Transesophageal echocardiogram. INDICATION: Aortic stenosis. COMPLICATION: None. LEVEL OF SEDATION: Moderate with sedation length of 15 minutes. PROCEDURE DESCRIPTION: After obtaining an informed consent, the patient was brought to the transesophageal echocardiogram suite. A pulse oximetry and heart rate monitors were attached to the patient. Subsequently, the transesophageal echocardiogram probe was advanced through the bite guard to the mid esophageal where 2D echocardiogram images as well as color Doppler, pulse Doppler, and continuous-wave Doppler were obtained from multiple angles. Particular attention was made to the left aortic valve. The procedure was completed without any complication. FINDINGS: The left ventricle appeared to be mildly dilated. The left ventricular systolic function appeared to be impaired with an ejection fraction of 35%-40%. The right ventricle appeared to be of normal size and function. The left atrium appeared to be severely dilated. The left atrial appendage appeared to be free from any thrombus. The interatrial septum appeared to be intact. The aortic valve is thickened and calcified and the aortic valve is trileaflet valve with evidence of a mean gradient of 32 mmHg by surface echo. The peak gradient was 50 mmHg. The mitral valve appeared to be mildly thickened with mild MR only. There was mild tricuspid regurgitation seen. The pulmonary artery systolic pressure was calculated to be at 35 mmHg. CONCLUSION: 1. Impaired LV function with ejection fraction between 35%-40%. 2. Severely dilated left atrium. 3. Intact interatrial septum. 4. Normal left atrial appendage. 5. Aortic sclerosis with evidence of moderate aortic stenosis. 6. Thickened mitral valve leaflets with mild MR. 7. Normal tricuspid valve and pulmonic valve. 8. No evidence of pericardial effusion. MMODL / IJN: [id number] /
--- NOTE | 2020-05-18 11:05 | CC ---
CARDIAC CATHETERIZATION REPORT DATE OF SERVICE: 05/18/2020 PERFORMING PHYSICIAN: Frandy Mcallister MD. INDICATION: Aortic stenosis. COMPLICATION: None. APPROACH: Right radial artery. LEVEL OF SEDATION: Moderate with sedation length of 12 minutes. PROCEDURE DESCRIPTION: After obtaining an informed consent, the patient was brought to the cardiac blood and plasma laboratory assistant. The right radial artery was cannulated using micropuncture technique and a micropuncture wire passed easily, then I placed a 6-[place] sheath. After that, I gave the patient 2 mg of verapamil IA and 6000 units of heparin IV. Selective right and left coronary angiogram performed using JR4 and JL3.5 catheters. Left heart catheterization was performed using 6-[place] pigtail catheter. The procedure was completed without any complication. SELECTIVE CORONARY ANGIOGRAM: 1. The right coronary artery is a large caliber vessel, it is a dominant vessel. It is angiographically normal. It distally bifurcates into PDA and PLV branches, both appeared to be angiographically normal. 2. The left main is angiographically normal. It bifurcates into LCX and ramus intermedius and left anterior descending artery. 3. The LCX is a large caliber vessel, it is a nondominant vessel. The LCX is angiographically normal. 4. The ramus intermedius is a medium caliber vessel, seems to be angiographically normal. 5. The LAD is angiographically normal it gives rise into the first and second diagonal branches, both appeared to be angiographically normal. 6. HEMODYNAMICS: The LVEDP was about 20 mmHg. The peak to peak gradient was 20 mmHg as well. CONCLUSION: 1. Normal coronary angiogram. 2. Mildly elevated LVEDP. 3. Peak to peak gradient of 20 mmHg across the aortic valve. POSTPROCEDURE MANAGEMENT: 1. Maximize medical treatment. 2. Treat the patient for cardiomyopathy. 3. Assess the severity of aortic stenosis if the ejection fraction improved. 4. Consider low-dose dobutamine also to assess for improvement in the ejection fraction and assess if the aortic valve stenosis is pseudostenosis or re-stenosis. MMODL / IJN: [id number] /
[2020-05-18 14:12] VITALS: BP 95/52; PULSE 56
== END 2020-05-18 15:28 | disposition home or self-care (01) ==
LOC: CATHCVL 07:27
PROVIDERS: ATTEND Internal Medicine Interventional Cardiology
DX: I08.0 Rheumatic disorders of both mitral and aortic valves (principal); I42.9 Cardiomyopathy, unspecified; I11.0 Hypertensive heart disease with heart failure; I50.9 Heart failure, unspecified; E78.5 Hyperlipidemia, unspecified; E11.9 Type 2 diabetes mellitus without complications; F17.210 Nicotine dependence, cigarettes, uncomplicated; Z79.84 Long term (current) use of oral hypoglycemic drugs; Z79.899 Other long term (current) drug therapy; Z82.49 Family history of ischemic heart disease and other diseases of the circulatory system
CPT/HCPCS: 93312; 93325; 93458; 85025; C1769; C1894; J2250; J2001; J3010; J1644; Q9967

== ENCOUNTER → 2020-10-21 | Outpatient (CLI) | payer MEDICARE | END | disposition home or self-care (01) | LOC: RADCTMAIN 07:59 | PROVIDERS: ATTEND Internal Medicine Interventional Cardiology | DX: I35.1 Nonrheumatic aortic (valve) insufficiency (principal) | CPT/HCPCS: 82565; 84520; 94150 ==

== ENCOUNTER → 2020-10-29 | Outpatient (CLI) | payer MEDICARE ==
--- NOTE | 2020-11-01 11:28 | CT ---
EXAMINATION TYPE: CT TAVR Planning DATE OF EXAM: 10/29/2020 HISTORY: Non rheumatic aortic valve CT DLP: 2172.60 mGycm Automated Exposure Control for Dose Reduction was Utilized. CONTRAST: CT scan of the chest, abdomen and pelvis is performed without and with IV Contrast, patient injected with 125 ml mL of Isovue 370. COMPARISON: CT chest 05/06/2020 TECHNIQUE: Helical imaging obtained through the chest, abdomen and pelvis during arterial phase jose pollo administration of radiographic contrast intravenously. FINDINGS: See report from [facility] regarding preprocedural planning CHEST: Some collateral vasculature is enhancing along the spinal column, reflux of contrast noted sigifredo ng the azygos vein Lower Neck and Thyroid: No significant findings Lungs: Some scattered emphysematous changes are present Central Airway: No significant findings Pleura: No significant findings Pulmonary Arteries: Measuring approximately 3 cm Heart and Pericardium: There are coronary artery calcifications. Calcifications present along the aor tic valve. Lymph Nodes: No significant findings Mediastinum & Esophagus: No significant findings ABDOMEN/PELVIS: Please note arterial phase of the imaging limits detailed evaluation of the solid abdominal organs. Liver: Low-attenuation may BE due to underlying hepatic steatosis. Spleen: No significant findings Kidneys: No significant findings Adrenal Glands: No significant findings Pancreas: No significant findings Gallbladder: No significant findings Bowel and Mesentery: No significant findings Lymph Nodes: No significant findings Urinary Bladder: No significant findings Pelvic Organs: No significant findings Other: No significant findings Other Lines/Tubes/Devices/Hardware: None IMPRESSION: See outside report. Incidental findings including coronary artery calcification, possible hepatic steatosis, additional venous flow as described.
== END | disposition home or self-care (01) ==
LOC: LABWHC1 10:24
PROVIDERS: ATTEND Internal Medicine Interventional Cardiology
DX: Z01.818 Encounter for other preprocedural examination (principal); I35.1 Nonrheumatic aortic (valve) insufficiency; I35.0 Nonrheumatic aortic (valve) stenosis
CPT/HCPCS: 71275; 74174; Q9967

== ENCOUNTER → 2020-12-03 | Outpatient (CLI) | payer MEDICARE | END | disposition home or self-care (01) | CPT/HCPCS: 36415; 80053; 85027; 85610; 85730; 86850; 86900; 86901; 86920; 87070; 93005 ==

== ENCOUNTER 2020-12-08 06:30 | Inpatient (IN) | payer MEDICARE ==
[2020-12-03 11:24] LABS: INR 0.9 (<1.2); Partial Thromboplastin Time 23.5 sec (22.0-30.0); Prothrombin Time 10.2 sec (9.0-12.0)
[2020-12-03 11:33] LABS: Albumin 4.4 g/dL (3.5-5.0); Calcium 9.2 mg/dL (8.4-10.2); Potassium 5.1 mmol/L (3.5-5.1); Total Bilirubin 0.3 mg/dL (0.2-1.3); Total Protein 6.7 g/dL (6.3-8.2)
[2020-12-03 11:52] LABS: HCT 35.9 % (39.0-53.0); HGB 12.1 gm/dL (13.0-17.5); MCH 33.2 pg (25.0-35.0); MCHC 33.5 g/dL (31.0-37.0); MCV 99.1 fL (80.0-100.0); Mean Platelet Volume 8.4; Platelet Count 173 k/uL (150-450); RBC 3.62 m/uL (4.30-5.90); RDW 12.4 % (11.5-15.5); WBC 7.4 k/uL (3.8-10.6)
[~2020-12-08 06:30] MED LIST changes: -ALPRAZolam 0.25 MG TAB PO PRN; -ALPRAZolam 0.5 MG TAB PO PRN; +ATORVASTATIN 10 MG TAB PO ONE; +CARDIOPLEGIC SOLN (K+ 16 MEQ/L 1,000 ML with SODIUM BICARB (1 MEQ/ML) 20 ML, LIDOCAINE ... PERFUSION PRN; +CLEVIDIPINE BUTYRATE 25 MG in EMPTY BAG 1 BAG IV PRN; +CLOPIDOGREL 75 MG TAB PO ONE; +INSULIN REGULAR 100 UNIT in SODIUM CHLORIDE 0.9% 100 ML IV PRN; +METOPROLOL TARTRATE 25 MG TAB PO ONE; -NITROGLYCERIN SL TABS 0.4 MG TAB SUBLINGUAL PRN; +NITROGLYCERIN-D5W PMX 25 MG/250 ML BTL IV PRN; +PROTAMINE SULFATE 250 MG in EMPTY BAG 1 BAG IV PRN; +SODIUM CHLORIDE 0.9% 1,000 ML IV ONE; -SODIUM CHLORIDE 0.9% 1,000 ML in EMPTY BAG 1 BAG IV ONE; +SODIUM CHLORIDE 0.9% 500 ML 500 ML INTRAARTER PRN; +TRANEXAMIC ACID 2,000 MG in SODIUM CHLORIDE 0.9% 80 ML IV PRN
[2020-12-08 07:07] LABS: Glucose,Whole Blood 128 mg/dL (75-99)
[2020-12-08] MEDS ORDERED: EPINEPHrine 2 MG in DEXTROSE 5% IN WATER 250 ML IV ONE ×2 (08:00)
[2020-12-08] MEDS ORDERED: LIDOCAINE 1% INJ 10MG/ML (20 ML MDV) ONE (08:34)
[2020-12-08] MEDS ORDERED: PROTAMINE SULFATE 10 MG/ML 5 ML VIAL IV ONE (08:46)
[2020-12-08] MEDS ORDERED: ROCURONIUM 10 MG/ML (5 ML VIAL) IV ONE (08:46)
[2020-12-08] MEDS ORDERED: fentaNYL (PF) 50 MCG/ML 2 ML AMP ONE (08:46)
[2020-12-08] MEDS ORDERED: GLYCOPYRROLATE 0.2 MG/ML 2 ML VIAL ONE (08:46)
[2020-12-08] MEDS ORDERED: HEPARIN SODIUM,PORCINE 10,000 UNIT/ML 1 ML VIAL ONE (08:46)
[2020-12-08] MEDS ORDERED: ceFAZolin 1,000 MG VIAL ONE (08:46)
[2020-12-08] MEDS ORDERED: PROPOFOL 10 MG/ML 20 ML VIAL IV ONE (08:46)
[2020-12-08] MEDS ORDERED: PHENYLEPHRINE-0.9% NACL SYG 1,000 MCG/10 ML SYRINGE ONE (08:46)
[2020-12-08] MEDS ORDERED: MIDAZOLAM 2 MG/2 ML VIAL ONE (08:46)
[2020-12-08] MEDS ORDERED: NEOSTIGMINE 1 MG/ML 10 ML VIAL ONE (08:46)
[2020-12-08] MEDS ORDERED: SODIUM CHLORIDE 0.9% 100 ML BAG ONE (08:46)
[2020-12-08] MEDS ORDERED: VERAPAMIL 2.5 MG/ML 2 ML AMP ONE (09:47)
[2020-12-08] MEDS ORDERED: IOPAMIDOL-300 100ML BTL INJ ONE (10:57)
[2020-12-08] MEDS ORDERED: SODIUM CHLORIDE 0.9% 1,000 ML IV ONE (11:00)
[2020-12-08] MEDS ORDERED: HEPARIN SODIUM 1,000 UN/ML (10ML VL) ONE (11:10)
--- NOTE | 2020-12-08 11:46 | P.PCN ---
Date of Procedure: 12/08/20 Operative Findings: Date of procedure: 12/08/2020 PROCEDURE PERFORMED: 1. Percutaneous Aortic Valve Implantation using a 34 mm Core-Valve Evolut-Pro Plus. 2. Transesophageal echocardiography 3. Access and repair of right femoral artery access site by Perclose device. 4. Placement and removal of temporary pacemaker wire. 5. Placement of the Almond device 6. Aortoiliac angiogram 7. Aortic arch angiogram 8. Selective bilateral common femoral artery angiogram INDICATIONS: 1. This is a very pleasant 70year-old male patient with a history of severe symptomatic aortic valve stenosis. 2. High surgical risk for AVR due to the reasons below. 3. NYHA class III and class IV symptoms 4. High STS score PERFORMING PHYSICIANS: Dr. Frandy Mcallister, interventional cardio Dr. Olesya Gasca, lpn per diem 3. Dr. Romie Raymond, Cardiothoracic surgeon CONTRAST USED: 100 ml. SEDATION: The procedure was performed under general anesthesia with sedation time 85 minutes APPROACH: Right common femoral artery with a 18-[place] sheath. Left common femoral artery with a 6-[place] sheath COMPLICATIONS: None PROCEDURE DESCRIPTION: The patient was discussed at valve clinic and thought better treated with TAVR. Risks, benefits, and alternatives of the procedure had been explained to the patient who understood the risks and agreed to proceed. After consents were obtained, patient was brought to the transcatheter aortic valve implantation room in the cardiac labeling associate [facility] anesthesia was provided by the anesthesiologist (see separate report). Once full body sterile prep was performed we accessed the right radial artery using micropuncture technique, the micropuncture wire passed easily then replaced 6-[place] sheath at the right radial artery. Subsequently and under fluoroscopy guidance we advanced the [employer] Almond device over [address] to the aortic arch. We perform aortic arch angiogram to opacify the ostial of the innominate as well as left carotid arteries. Subsequently under fluoroscopy guidance the filter was placed initially at the innominate and then at the left subclavian and subsequently the device was left in place. Then the left emoral artery was accessed using a modified Seldinger technique under ultrasound guidance. A 6.0 [place] cm sheath was placed in the left femoral artery. Next, a 6-[place] pigtail catheter was advanced into the aorta and positioned in the aortic root, aortic root angiography was performed to determine optimal deployment angle. The right femoral artery was accessed using modified Seldinger technique, micropuncture technique and under direct ultrasound guidance. A right femoral angiogram was done showing access in the common femoral artery and a 6Fr sheath was placed. Subsequently we deployed 2 Perclose 10:00 and 2:00. After that I placed a 7-[place] sheath in the right common femoral artery. Initially we advanced a J-wire O lower thoracic aorta on subsequently the wire was exchanged over 1 catheter into superstiff. Subsequently we dilated using an 8-[place] African and then 10-South African and then 12- [place] dilator before we placed a 18-[place] sheath over the superstiff wire which was advanced under fluoroscopy guidance at the right common femoral artery. Next a 6F- AL1 catheter was advanced over a wire to the aortic root. A straight wire was advanced through the catheter and used to cross the severely stenotic valve. After that we did exchange the AL 1 catheter into a pigtail catheter. Subsequently we did simultaneous LV and aortic pressure to check for hemodynamic and the gradient. The gradient was significant. Subsequently we advanced a superstiff wire through the pigtail catheter in the LV all the way to the apex. Then a 34 mm Corevalve Evolut-Pro Plus was advanced. The valve was then positioned across the aortic valve and confirmed with aortic root angiography. The 34 mm valve was then deployed in a proper position using slow deployment in conjuncture with aortic root angiography and JAYSON. The delivery system was withdrawn back into the arch and an aortic root injection in conjunction with JAYSON demonstrated moderate aortic insufficiency which was perivalvular. Because of that we decided to post-dilate the valve which we did using 26 mm balloon . After that there was mild brittany- valvular leak. There was no evidence of any other significant abnormalities. The closure of the right femoral artery access site was then performed over the wire using the two perclose device. The pigtail was then advanced to the level of the iliac bifurcation via the left femoral access. Femoral angiogram was performed that showed no contrast leak. The left femoral angiogram then demonstrated an arteriotomy in the common femoral artery. We decided to do manual pressure on the left side. The temporary venous pacemaker was pulled and then the 6F venous sheath was pulled and manual pressure was held with hemostasis achieved. The patient was then transported to the ICU in hemodynamically stable condition, requiring no pressor support. RECOMMENDATIONS: The patient will be monitored in the ICU for hemodynamic and electrical stability. Patient will be on aspirin and Plavix.
--- NOTE | 2020-12-08 11:56 | P.ANPRN ---
Procedure Note - Anesthesia - Invasive Line Left Arterial Line Time Out Performed: Yes Date of Procedure: 12/08/20 Time of Procedure: 07:15 Location of Patient: [facility] Preparation: Sterile Prep, Sterile Dressing Arterial Line Location: Radial Ultrasound Used: Yes Purpose - Visualization and Identification of Vasculature: Yes Needle Guage: 20 Image Stored and Saved: Yes Narrative: L radial arterial line w/ u/s under sterile conditions Right Central Line Time Out Performed: Yes Date of Procedure: 12/08/20 Time of Procedure: 08:00 Location of Patient: [facility] Preparation: Sterile Prep, Sterile Dressing Ultrasound Used: Yes Purpose - Visualization and Identification of Vasculature: Yes Needle Guage: 18 Image Stored and Saved: Yes Narrative: Central line placement per sterile protocol utilized.
--- NOTE | 2020-12-08 11:58 | P.OP ---
Date of Procedure: 12/08/20 Preoperative Diagnosis: Aortic stenosis Postoperative Diagnosis: Same Procedure(s) Performed: Transcatheter aortic valve replacement with 34 core valve proplus, right subclavian transvenous temporary pacing wire placement, placement of cerebral protection device via right radial arterial catheterization. Implants: 34 mm Core Valve Proplus Anesthesia: GETA Surgeon: Romie Raymond Manager Pe #1: Frandy Mcallister (Primary screw supervisor) Manager Pe #2: Marques Gonsalez (Secondary screw supervisor) Estimated Blood Loss (ml): 20 IV fluids (ml): 800 Urine output (ml): 200 Pathology: other (Aortic debris) Condition: stable Disposition: ICU Indications for Procedure: 70-year-old male known aortic valvular stenosis which is been progressive and symptomatic presents for elective transcatheter aortic valve implantation. Use of a cerebral protection device was recommended when he was seen in the valve clinic and scheduled. Operative Findings: Tricuspid heavily calcified aortic valve, good arterial access, excellent placement of the valve at appropriate level with trivial paravalvular leak at completion of case. Description of Procedure: Patient was brought to the slab miller operator placed supine on the table anesthetized and intubated. The anterior torso and bilateral groins and right wrist were sterilely prepped and draped. 18-gauge needle was placed into the right subclavian vein and a guidewire threaded into the right atrium. Introducer and dilator were placed. Temporary venous screw-in lead was placed through the introducer sheath and manipulated into the apex of the right ventricle and screwed in. Pacing threshold was 0.8 V. The introducer sheath was removed and the lead secured to the skin with 3 suture ligatures of 2-0 silk. Bilateral femoral access was obtained by Dr. Norris using ultrasound. On the left a 6- Palestinian Neeraj was placed up into the descending thoracic aorta. On the right a 6-Palestinian sheath was placed into Perclose devices were deployed. An 8-Palestinian sheath was then placed. Patient was systemically heparinized. Right radial arterial access was obtained by Dr. Gonsalez. 5-Palestinian sheath was placed and a whisper wire and advanced into the aortic arch. Over this the sentinel device was advanced and appropriately positioned with the baskets covering the innominate artery and left carotid artery. Arch aortography was used to facilitate appropriate placement of the catheter. The right femoral artery was now dilated and a 18-Palestinian sheath was placed. This was performed over a stiff wire. Pigtail catheter was advanced on the left and placed in the non-coronary sinus. On the right the valve was crossed with a straight wire and this was exchanged for a pigtail and gradients were obtained. Lunderquist wire was now placed in the apex of the ventricle. 34 core valve was loaded on the back table and brought up onto the field. It was checked under fluoroscopy and noted to be appropriately loaded. The 18-Palestinian sheath was exchanged for the core valve delivery system and it was advanced across the aortic valve. Aortic root injec tion demonstrated appropriate placement of the pigtail catheter in the non- coronary sinus. The valve was deployed an appropriate level of 3 on the right and 4 on the left and released. JAYSON demonstrated moderate mild to moderate perivalvular leak. Although this was appearing to improve over time decided to balloon the valve to assure elimination of the paravalvular leak. This was performed with a 26 Trew balloon. In order to do this we exchanged the core valve delivery system for the 18-Palestinian Palestinian sheath and placed the Trew balloon through the 18 mL across the aortic valve and balloon the aortic valve under rapid ventricular pacing. Following this there was only trivial paravalvular leak. Heparin was reversed with protamine after removal of the sentinel device. The 18 sheath was removed and good hemostasis was obtained and bilateral groins by Dr. Norris and Dr. Gonsalez. Patient was transferred to the ICU in stable condition awake and extubated.
[2020-12-08 11:59] LABS: Glucose,Whole Blood 114 mg/dL (75-99)
[2020-12-08] MEDS ORDERED: IPRATROPIUM-ALBUTEROL 3 ML NEB INHALATION PRN (12:03)
[2020-12-08] MEDS ORDERED: ACETAMINOPHEN TAB 325 MG TAB PO PRN (12:03)
[2020-12-08] MEDS ORDERED: HYDROcodone/APAP 5-325MG 1 EACH TAB PO PRN (12:03)
[2020-12-08] MEDS ORDERED: CALCIUM GLUCONATE 2 GM in SODIUM CHLORIDE 0.9% 100 ML IVPB PRN (12:03)
[2020-12-08] MEDS ORDERED: Potassium Replacement Protocol 1 EACH MISC MISCELLANE PRN (12:03)
[2020-12-08] MEDS ORDERED: Phosphorus Replacement Protoco 1 EACH MISC MISCELLANE PRN (12:03)
[2020-12-08] MEDS ORDERED: ALBUMIN HUMAN 5% 250 ML in EMPTY BAG 1 BAG IVPB PRN (12:03)
[2020-12-08] MEDS ORDERED: Magnesium Replacement Protocol 1 EACH MISC MISCELLANE PRN (12:03)
[2020-12-08] MEDS ORDERED: SODIUM CHLORIDE 0.9% 1,000 ML IV SCH (12:03)
[2020-12-08] MEDS ORDERED: ONDANSETRON 4 MG/2 ML VIAL IVP PRN (12:03)
--- NOTE | 2020-12-08 12:03 | P.ANPRN ---
Procedure Note - Anesthesia - JAYSON Intraop Pre Bypass JAYSON Intraop - Anesthesia Indication: Aortic stenosis Date of Procedure: 12/08/20 Pre-operative Diagnosis: Post-operative Diagnosis: Same Surgeon: Romie Raymond Left Ventricle: EF 35% Regional Wall Motion Abnormalities: None Left Ventricle Hypertrophy: Yes R. Ventricle Function: Hypokinesis Mild Aortic Valve: Peak 52 mm Hg Mean 35 mm Hg Anatomy: Trileaflet Aortic Stenosis: Severe Aortic Regurgitation: Trace Mitral Stenosis: None Mitral Regurgitation: Mild Tricuspid Stenosis: None Tricuspid Regurgitation: None Pulmonic Stenosis: None Pulmonic Regurgitation: None R. Atrial Dilation: No R. Atrial PFO: No L. Atrial Dilation: Yes Aortic Dissection: No Aortic Calcification: Mild Plural Effusion: None - JAYSON Intraop Post Bypass JAYSON Intraop Post Bypass Procedure Performed: s/p TAVR Left Ventricle: EF 30% Ejection Fraction: Other (30) Regional Wall Motion Abnormalities: None R. Ventricle Function: Hypokinesis Mild Aortic Valve: S/p TAVR - mild perivalvular leak at LCC and RCC, Peak 13 mmHg, Mean 6 mm Hg Mitral Valve: Unchanged Tricuspid: Unchanged Pulmonic: Unchanged Aortic Dissection: No
[2020-12-08 12:25] LABS: Basophils % (A) 0 %; Eosinophils # (A) 0.3 k/uL (0-0.7); Eosinophils % (A) 4 %; HCT 32.9 % (39.0-53.0); HGB 10.6 gm/dL (13.0-17.5); Lymphocytes # (A) 1.5 k/uL (1.0-4.8); Lymphocytes % (A) 24 %; MCH 32.2 pg (25.0-35.0); MCHC 32.1 g/dL (31.0-37.0); MCV 100.3 fL (80.0-100.0); Mean Platelet Volume 9.1; Monocytes # (A) 0.3 k/uL (0-1.0); Monocytes % (A) 5 %; Neutrophils # (A) 4.1 k/uL (1.3-7.7); Neutrophils % (A) 65 %; Platelet Count 128 k/uL (150-450); RBC 3.28 m/uL (4.30-5.90); RDW 13.1 % (11.5-15.5); WBC 6.3 k/uL (3.8-10.6)
[2020-12-08 12:35] LABS: Ionized Calcium 4.9 mg/dL (4.5-5.3)
--- NOTE | 2020-12-08 12:47 | XR ---
EXAMINATION TYPE: XR chest 1V portable DATE OF EXAM: 12/08/2020 COMPARISON: 05/06/2020 HISTORY: Postoperative cardiac surgery TECHNIQUE: Single frontal view of the chest is obtained. FINDINGS: A pacer lead overlies the cardiac silhouette. Stent material now overlies the cardiomediastinal media stinal silhouette. Prominence of the interstitium of both lungs is unchanged. IMPRESSION: A pacer lead and stent material now overlies the cardiomediastinal silhouette. Otherwise, no signific ant change.
[2020-12-08] MEDS: IPRATROPIUM-ALBUTEROL 3 ML NEB INHALATION SCH ×3 (12:48→20:29)
[2020-12-08 13:00] LABS: Partial Thromboplastin Time 25.5 sec (22.0-30.0); Prothrombin Time 10.9 sec (9.0-12.0)
[2020-12-08 13:05] LABS: Albumin 3.1 g/dL (3.5-5.0); Calcium 8.2 mg/dL (8.4-10.2); Magnesium 1.8 mg/dL (1.6-2.3); Total Bilirubin 0.1 mg/dL (0.2-1.3); Total Protein 5.1 g/dL (6.3-8.2)
[2020-12-08 13:11] LABS: Potassium 4.7 mmol/L (3.5-5.1)
[2020-12-08] MEDS: INSULIN ASPART (NovoLOG) 100 UNIT/ML VIAL SQ SCH ×3 (14:07→21:53)
[2020-12-08] MEDS: GLIMEPIRIDE 2 MG TAB PO SCH (14:38)
[2020-12-08 14:58] LABS: ABG Glucose Whole Blood 145 mg/dL (75-99); ABG HCO3 23 mmol/L (21-25); ABG Hematocrit 33 % (34.0-46.0); ABG Ionized Calcium 4.8 mg/dL (4.5-5.3); ABG Lactic Acid Whole Blood 1.7 mmol/L (0.5-1.6); ABG PCO2 43 mmHg (35-45); ABG PH 7.33 (7.35-7.45); ABG PO2 413 mmHg (83-108); ABG Potassium Whole Blood 4.8 mmol/L (3.4-4.5); ABG Sodium Whole Blood 142 mmol/L (135-146); ABG TCO2 24 mmol/L (19-24)
[2020-12-08] MEDS ORDERED: MUPIROCIN 2% OINT 22 GM TUBE NASAL ONE (15:45)
--- NOTE | 2020-12-08 16:15 | P.CNPUL ---
History of Present Illness Consult date: 12/08/20 Requesting physician: Romie Raymond Reason for consult: dyspnea Chief complaint: Dyspnea History of present illness: This is a 70-year-old white male patient who has been following with Dr. Gurpreet perez, has a known history of aortic valve stenosis and has been followed in regards to that for several years. Patient reports worsening exertional dyspnea. He had an episode of congestive heart failure several months ago that required hospitalization. He has had no syncopal episodes, no orthopnea or paroxysmal nocturnal dyspnea. His transesophageal echocardiogram in April 2020 showed moderate left ventricular dysfunction and moderate to severe aortic valve stenosis. His most recent JAYSON in July 2020 showed severe aortic valve stenosis with a mean gradient of 50 mmHg and the peak velocity of 4.26 cm/s. Ejection fraction was 40-45% with mild tricuspid valve regurgitation and no significant mitral valve regurgitation. Patient underwent a heart catheterization on 06/07/2020 which showed normal coronary angiogram, mildly elevated LVEDP, and to peak gradient of 20 mmHg across the aortic valve. His other medical history significant for diabetes mellitus type 2, hypertension, hyperlipidemia, family history of coronary artery disease, patient is a current smoker, carries over [id number] smoking history, currently down to 3 cigarettes per day. His preop FEV1 was 2.48 L or 77% of predicted, FVC was 3.26 L or 74% of predicted, an FEV1/FVC ratio of 104% of predicted, consistent with mild restriction. Patient was referred to CT surgery and was found to be a good candidate for transcatheter aortic valve replacement. On 12/08/2020 patient under went transcatheter aortic valve replacement with a 34 mm core valve proplus, right subclavian transvenous temporary pacemaker placement, and placement of cerebral protection device via right radial arterial catheterization. Following his procedure patient is seen in intensive care unit, he is awake and alert, he is on room air with a pulse ox of 96%, vital signs are stable, patient is afebrile, he is breathing comfortably. In the sinus mechanism with a controlled rate, postprocedure chest x-ray shows prominence of interstitium bilaterally. Postop blood work shows white blood cell count of 6.3, hemoglobin is 10.6, platelet count is 128, INR is 1, sodium is 140, potassium is 4.7, chloride is 113, CO2 is 22, BUN of 30 creatinine is 1.14. Review of Systems All systems: negative Constitutional: Denies chills, Denies fever Eyes: denies blurred vision, denies pain Ears, nose, mouth and throat: Denies headache, Denies sore throat Cardiovascular: Reports chest pain, Reports decreased exercise tolerance, Reports lightheadedness, Denies shortness of breath Respiratory: Reports dyspnea, Denies cough Gastrointestinal: Denies abdominal pain, Denies diarrhea, Denies nausea, Denies vomiting Musculoskeletal: Denies myalgias Integumentary: Denies pruritus, Denies rash Neurological: Denies numbness, Denies weakness Psychiatric: Denies anxiety, Denies depression Endocrine: Denies fatigue, Denies weight change Past Medical History Past Medical History: Heart Failure, Diabetes Mellitus, Hypertension, Renal Disease Additional Past Medical History / Comment(s): heart murmer, "dr watching kidneys due to damage from diabetes", hx foot ulcers(can not walk bare feet-no current wounds). CHF - APRIL 2020 History of Any Multi-Drug Resistant Organisms: None Reported Past Surgical History: Heart Catheterization, Orthopedic Surgery, Tonsillectomy Additional Past Surgical History / Comment(s): surgery for lazy eye(rt eye), rotator cuff and repair of torn tendons left arm, alivia cataracts, two fingers left hand partially amputated due to injury. JAYSON Past Anesthesia/Blood Transfusion Reactions: No Reported Reaction Additional Past Anesthesia/Blood Transfusion Reaction / Comment(s): no hx blood transfusion Smoking Status: Current every day smoker - Past Family History Father Family Medical History: Cancer Mother Family Medical History: Cancer Additional Family Medical History / Comment(s): breast Brother(s) Family Medical History: Cancer Additional Family Medical History / Comment(s): esophageal Medications and Allergies Home Medications Medication Instructions Recorded Confirmed Type Aspirin EC [Ecotrin Low Dose] 81 mg PO DAILY 05/06/20 12/08/20 History Cinnamon Bark [Cinnamon] 500 mg PO W/SUPPER 05/06/20 12/08/20 History Glimepiride [Amaryl] 2 mg PO DAILY@1200 05/06/20 12/08/20 History Furosemide [Lasix] 40 mg PO DAILY #30 tab 05/07/20 12/08/20 Rx Metoprolol Succinate (ER) [Toprol 25 mg PO DAILY #30 tab.er.24h 05/07/20 12/08/20 Rx XL] Atorvastatin [Lipitor] 40 mg PO HS 05/13/20 12/08/20 History Multivitamins, Thera [Multivitamin 1 tab PO DAILY 10/29/20 12/08/20 History (formulary)] metFORMIN HCL 500 mg PO BID 10/29/20 12/08/20 History Acetaminophen/Diphenhydramine 1 tab PO HS 12/02/20 12/02/20 History [Tylenol PM 500-25mg] Allergies Allergy/AdvReac Type Severity Reaction Status Date / Time No Known Allergies Allergy Verified 12/08/20 06:50 Physical Exam Vitals: Vital Signs Temp Pulse Pulse Resp BP BP BP 12/08/20 14:00 52 L 18 12/08/20 13:00 54 L 12 12/08/20 12:58 54 L 12/08/20 12:50 48 L 12/08/20 12:00 96.4 F L 54 L 15 120/60 12/08/20 07:11 98.2 F 63 18 144/64 152/68 BP BP Pulse Ox 12/08/20 14:00 96 12/08/20 13:00 95 12/08/20 12:58 12/08/20 12:50 95 12/08/20 12:00 93 L 12/08/20 07:11 138/72 137/72 99 Intake and Output 12/08/20 12/08/20 12/08/20 06:59 14:59 22:59 Intake Total 2100 Balance 2100 Intake: IV 2100 Sodium Chloride 0.9% 1, 100 000 ml @ 50 mls/hr IV . Q20H [facility] Rx#:[id number] Other: Weight 86 kg ABP, PAP, CO, CI - Last 8 Hours Arterial Blood Pressure 140/50 Arterial Blood Pressure 114/41 Arterial Blood Pressure 119/49 GENERAL EXAM: Alert, very pleasant, 70-year-old white male, on room air, with a pulse ox of 96%, resting in bed, comfortable in no apparent distress. HEAD: Normocephalic/atraumatic. EYES: Normal reaction of pupils, equal size. Conjunctiva pink, sclera white. NOSE: Clear with pink turbinates. THROAT: No erythema or exudates. NECK: No masses, no JVD, no thyroid enlargement, no adenopathy. CHEST: No chest wall deformity. Symmetrical expansion. Right upper chest temporary pacemaker in place, insertion site is clean dry and intact, soft, no evidence of hematoma LUNGS: Equal air entry with no crackles, wheeze, rhonchi or dullness. CVS: Regular rate and rhythm, normal S1 and S2, no gallops, no murmurs, no rubs ABDOMEN: Soft, nontender. No hepatosplenomegaly, normal bowel sounds, no guarding or rigidity. EXTREMITIES: No clubbing, no edema, no cyanosis, 2+ pulses and upper and lower extremities. Bilateral groin puncture sites are clean dry and intact, right radial arterial puncture site clean dry and intact, and patient has a TR band in place MUSCULOSKELETAL: Muscle strength and tone normal. SPINE: No scoliosis or deformity SKIN: No rashes CENTRAL NERVOUS SYSTEM: Alert and oriented -3. No focal deficits, tone is no rmal in all 4 extremities. PSYCHIATRIC: Alert and oriented -3. Appropriate affect. Intact judgment and insight. Results - Laboratory Findings CBC and BMP: 12/08/20 12:10 12/08/20 12:10 ABG ABG pH 7.33 (7.35-7.45) L 12/08/20 09:12 ABG pCO2 43 mmHg (35-45) 12/08/20 09:12 ABG pO2 413 mmHg (83-108) H 12/08/20 09:12 ABG O2 Saturation 100.0 % (94-97) H 12/08/20 09:12 PT/INR, D-dimer PT 10.9 sec (9.0-12.0) 12/08/20 12:10 INR 1.0 (<1.2) 12/08/20 12:10 Abnormal lab findings: Abnormal Labs 12/03/20 12/03/20 12/03/20 10:22 10:22 10:22 RBC 3.62 L Hgb 12.1 L Hct 35.9 L MCV Plt Count ABG pH ABG pO2 ABG O2 Saturation ABG Hematocrit ABG Potassium ABG Glucose ABG Lactic Acid Hemoglobin Chloride BUN 38 H Creatinine 1.44 H Glucose 165 H POC Glucose (mg/dL) Calcium Total Bilirubin Total Protein Albumin Arterial Blood Potassium Arterial Blood Glucose Crossmatch See Detail 12/08/20 12/08/20 12/08/20 06:55 09:12 11:57 RBC Hgb Hct MCV Plt Count ABG pH 7.33 L ABG pO2 413 H ABG O2 Saturation 100.0 H ABG Hematocrit 33 L ABG Potassium 4.8 H ABG Glucose 145 H ABG Lactic Acid 1.7 H Hemoglobin 10.7 L Chloride BUN Creatinine Glucose POC Glucose (mg/dL) 128 H 114 H Calcium Total Bilirubin Total Protein Albumin Arterial Blood Potassium 4.8 H Arterial Blood Glucose 145 H Crossmatch 12/08/20 12/08/20 12:10 12:10 RBC 3.28 L Hgb 10.6 L Hct 32.9 L MCV 100.3 H Plt Count 128 L ABG pH ABG pO2 ABG O2 Saturation ABG Hematocrit ABG Potassium ABG Glucose ABG Lactic Acid Hemoglobin Chloride 113 H BUN 30 H Creatinine Glucose 108 H POC Glucose (mg/dL) Calcium 8.2 L Total Bilirubin 0.1 L Total Protein 5.1 L Albumin 3.1 L Arterial Blood Potassium Arterial Blood Glucose Crossmatch - Diagnostic Findings Chest x-ray: report reviewed, image reviewed Assessment and Plan Plan: Assessment: #1. Progressive and symptomatic severe aortic valve stenosis, status post transcatheter aortic valve replacement with 34 mm core valve proplus, right subclavian transvenous temporary pacemaker placement, and placement of a cerebral protection device via the right radial arterial catheterization, on 12/08/2020 #2. Chronic congestive heart failure, with reduced systolic function and EF of 40-45% #3. History of hypertension #4. Hyperlipidemia #5. Diabetes mellitus #6. Family history of coronary artery disease #7. Chronic and ongoing history of smoking, carries [id number] smoking history, currently down to 3 cigarettes a day Preop FEV1 was 2.48 L or 77% of predicted, FVC of 3.26 L or 74% of predicted, and FEV1 to FVC ratio of 104 consi stent with mild restriction Plan: Postop chest x-ray and blood work has been reviewed Hemodynamically patient is stable Doing well Provide incentive spirometer Continue breathing treatments Continue close hemodynamic monitoring Follow-up chest x-ray and labs in the morning Echo in am GI and DVT prophylaxis and antibiotics per CT surgery We'll continue to follow I performed a history & physical examination of the patient and discussed their management with my nurse practitioner, Monie Kay. I reviewed the nurse practitioner's note and agree with the documented findings and plan of care. Lung sounds are positive for diminished breath sounds. The findings and the impression was discussed with the patient. I attest to the documentation by the nurse practitioner. Time with Patient: Greater than 30
[2020-12-08 17:24] LABS: Glucose,Whole Blood 88 mg/dL (75-99)
[2020-12-08] MEDS ORDERED: MUPIROCIN 2% OINT 22 GM TUBE NASAL SCH (21:00)
[2020-12-08 21:49] LABS: Glucose,Whole Blood 264 mg/dL (75-99)
[2020-12-08] MEDS: METOPROLOL TARTRATE 12.5 MG TAB PO SCH (21:53)
[2020-12-09] MEDS: HEPARIN SODIUM,PORCINE/PF 5,000 UNIT/0.5 ML SYRINGE SQ SCH ×2 (00:04→08:43)
[2020-12-09 04:05] VITALS: TEMP 98.3
[2020-12-09 04:25] LABS: Basophils % (A) 1 %; Eosinophils # (A) 0.3 k/uL (0-0.7); Eosinophils % (A) 3 %; HCT 31.9 % (39.0-53.0); HGB 10.8 gm/dL (13.0-17.5); Lymphocytes # (A) 0.7 k/uL (1.0-4.8); Lymphocytes % (A) 9 %; MCH 33.8 pg (25.0-35.0); MCHC 33.8 g/dL (31.0-37.0); MCV 99.9 fL (80.0-100.0); Mean Platelet Volume 8.4; Monocytes # (A) 0.6 k/uL (0-1.0); Monocytes % (A) 7 %; Neutrophils # (A) 6.1 k/uL (1.3-7.7); Neutrophils % (A) 78 %; Platelet Count 130 k/uL (150-450); RBC 3.19 m/uL (4.30-5.90); RDW 12.6 % (11.5-15.5); WBC 7.8 k/uL (3.8-10.6)
[2020-12-09 04:45] LABS: ALT 13 U/L (4-49); AST 17 U/L (17-59); African American GFR (CKD) >90 (>60 ml/min/1.73 sqM); Albumin 3.4 g/dL (3.5-5.0); Alkaline Phosphatase 54 U/L (38-126); Anion Gap 5 mmol/L; Blood Urea Nitrogen 24 mg/dL (9-20); Calcium 8.6 mg/dL (8.4-10.2); Carbon Dioxide 24 mmol/L (22-30); Chloride 108 mmol/L (98-107); Glucose 218 mg/dL (74-99); Magnesium 1.8 mg/dL (1.6-2.3); Non-African American GFR(CKD) 78 (>60 ml/min/1.73 sqM); Potassium 4.4 mmol/L (3.5-5.1); Sodium 137 mmol/L (137-145); Total Bilirubin <0.1 mg/dL (0.2-1.3); Total Protein 5.6 g/dL (6.3-8.2)
[2020-12-09] MEDS: MAGNESIUM SULFATE-D5W PMX 1 GM in DEXTROSE/WATER 1 100ML.BAG IVPB SCH ×2 (06:31→08:45)
[2020-12-09 06:40] LABS: Glucose,Whole Blood 182 mg/dL (75-99)
[2020-12-09] MEDS: INSULIN ASPART (NovoLOG) 100 UNIT/ML VIAL SQ SCH ×2 (06:47→13:15)
[2020-12-09] MEDS: IPRATROPIUM-ALBUTEROL 3 ML NEB INHALATION SCH ×3 (07:11→15:08)
[2020-12-09] MEDS ORDERED: PANTOPRAZOLE 40 MG TABLET PO SCH (07:30)
--- NOTE | 2020-12-09 07:49 | P.PN ---
Subjective Progress Note Date: 12/09/20 Principal diagnosis: Severe symptomatic aortic stenosis. Previous medical history of chronic systolic heart failure with EF 40-45% and NYHA class III and IV symptoms, hypertension, hyperlipidemia, izn-dbyltsj-lhqskygqg diabetes mellitus, current tobacco dependence, and family history of coronary artery disease POD #1 transcatheter aortic valve replacement with 34 mm Core Valve Evolut-Pro+, right subclavian transvenous temporary pacing wire placement, placement of [place] cerebral protection device via right radial arterial catheterization, transesophageal echocardiography, access and repair of right femoral artery access site by Perclose device, aortoiliac angiogram, aortic arch angiogram, selective bilateral common femoral artery angiogram The patient is currently sitting up in a recliner in the intensive care unit in no acute distress eating breakfast. Remains in sinus rhythm with heart rate in the 60s, hemodynamically stable. Denies any pain or shortness of breath. He has been ambulatory. Bilateral groin sites soft and nontender. Patient had an uneventful night, no new concerns. Objective - Vital Signs Vital signs: Vital Signs Temp 98.3 F 12/09/20 04:00 Pulse 72 12/09/20 07:20 Resp 14 12/09/20 07:00 BP 121/57 12/09/20 07:00 Pulse Ox 95 12/09/20 07:00 Intake & Output 12/08/20 12/09/20 12/09/20 18:59 06:59 18:59 Intake Total 2350 600 50 Balance 2350 600 50 Weight 88.3 kg Intake: IV 2350 600 50 Sodium Chloride 0.9% 1, 300 600 50 000 ml @ 50 mls/hr IV . Q20H [facility] Rx#:[id number] ceFAZolin 2 gm In Sodium 50 Chloride 0.9% 50 ml @ 100 mls/hr IVPB Q8HR [facility] Rx# :[id number] Other: Voiding Method Toilet Toilet # Voids 1 1 ABP, PAP, CO, CI - Last Documented Arterial Blood Pressure 141/45 - Exam CONSTITUTIONAL: Appears comfortable, cooperative, no acute distress RESPIRATORY: Lungs sounds diminished bilaterally. Respirations even, nonlabo red. Currently on room air with oxygen saturation 96%. Able to achieve 1500 mL on incentive spirometry. Strong cough. CARDIOVASCULAR: S1, S2 present. Regular rate and rhythm, sinus rhythm on te lemetry with heart rate in the 60s. Sternum stable. Palpable peripheral pulses bilaterally. No edema present. No calf pain or tenderness noted. GASTROINTESTINAL: Abdomen soft, nontender, nondistended. Active bowel sounds present 4 quadrants. Tolerating diet. GENITOURINARY: Continues to void INTEGUMENTARY: Skin is warm and dry with evidence of good perfusion. Bilateral groins soft, nontender without drainage. Right radial site without redness or drainage, T-Band in place but deflated NEUROLOGIC: Cranial nerves II through XII intact MUSKULOSKELETAL: Able to move all extremities, strength equal bilaterally, gait normal PSYCHIATRIC: Alert and oriented to person place and time, appropriate affect, intact judgment and insight INVASIVE LINES AND TUBES: Right anterior chest wall temporary pacemaker wires present, grounded - Allied health notes Allied health notes reviewed: nursing - Labs CBC & Chem 7: 12/09/20 04:08 12/09/20 04:08 Labs: Abnormal Lab Results - Last 24 Hours (Table) 12/03/20 12/08/20 12/08/20 Range/Units 10:22 09:12 11:57 RBC (4.30-5.90) m/uL Hgb (13.0-17.5) gm/dL Hct (39.0-53.0) % MCV (80.0-100.0) fL Plt Count (150-450) k/uL Lymphocytes # (1.0-4.8) k/uL ABG pH 7.33 L (7.35-7.45) ABG pO2 413 H (83-108) mmHg ABG O2 Saturation 100.0 H (94-97) % ABG Hematocrit 33 L (34.0-46.0) % ABG Potassium 4.8 H (3.4-4.5) mmol/L ABG Glucose 145 H (75-99) mg/dL ABG Lactic Acid 1.7 H (0.5-1.6) mmol/L Hemoglobin 10.7 L (13.0-17.5) gm/dL Chloride (98-107) mmol/L BUN (9-20) mg/dL Glucose (74-99) mg/dL POC Glucose (mg/dL) 114 H (75-99) mg/dL Calcium (8.4-10.2) mg/dL Total Bilirubin (0.2-1.3) mg/dL Total Protein (6.3-8.2) g/dL Albumin (3.5-5.0) g/dL Arterial Blood Potassium 4.8 H (3.4-4.5) mmol/L Arterial Blood Glucose 145 H (75-99) mg/dL Crossmatch See Detail 12/08/20 12/08/20 12/08/20 Range/Units 12:10 12:10 21:48 RBC 3.28 L (4.30-5.90) m/uL Hgb 10.6 L (13.0-17.5) gm/dL Hct 32.9 L (39.0-53.0) % MCV 100.3 H (80.0-100.0) fL Plt Count 128 L (150-450) k/uL Lymphocytes # (1.0-4.8) k/uL ABG pH (7.35-7.45) ABG pO2 (83-108) mmHg ABG O2 Saturation (94-97) % ABG Hematocrit (34.0-46.0) % ABG Potassium (3.4-4.5) mmol/L ABG Glucose (75-99) mg/dL ABG Lactic Acid (0.5-1.6) mmol/L Hemoglobin (13.0-17.5) gm/dL Chloride 113 H (98-107) mmol/L BUN 30 H (9-20) mg/dL Glucose 108 H (74-99) mg/dL POC Glucose (mg/dL) 264 H (75-99) mg/dL Calcium 8.2 L (8.4-10.2) mg/dL Total Bilirubin 0.1 L (0.2-1.3) mg/dL Total Protein 5.1 L (6.3-8.2) g/dL Albumin 3.1 L (3.5-5.0) g/dL Arterial Blood Potassium (3.4-4.5) mmol/L Arterial Blood Glucose (75-99) mg/dL Crossmatch 12/09/20 12/09/20 12/09/20 Range/Units 04:08 04:08 06:38 RBC 3.19 L (4.30-5.90) m/uL Hgb 10.8 L (13.0-17.5) gm/dL Hct 31.9 L (39.0-53.0) % MCV (80.0-100.0) fL Plt Count 130 L (150-450) k/uL Lymphocytes # 0.7 L (1.0-4.8) k/uL ABG pH (7.35-7.45) ABG pO2 (83-108) mmHg ABG O2 Saturation (94-97) % ABG Hematocrit (34.0-46.0) % ABG Potassium (3.4-4.5) mmol/L ABG Glucose (75-99) mg/dL ABG Lactic Acid (0.5-1.6) mmol/L Hemoglobin (13.0-17.5) gm/dL Chloride 108 H (98-107) mmol/L BUN 24 H (9-20) mg/dL Glucose 218 H (74-99) mg/dL POC Glucose (mg/dL) 182 H (75-99) mg/dL Calcium (8.4-10.2) mg/dL Total Bilirubin <0.1 L (0.2-1.3) mg/dL Total Protein 5.6 L (6.3-8.2) g/dL Albumin 3.4 L (3.5-5.0) g/dL Arterial Blood Potassium (3.4-4.5) mmol/L Arterial Blood Glucose (75-99) mg/dL Crossmatch - Imaging and Cardiology Chest x-ray: image reviewed Assessment and Plan Assessment: 1. Severe symptomatic aortic stenosis, status post transcatheter aortic valve replacement with 34 mm Core Valve Evolut-Pro+ 2. History of chronic systolic heart failure with EF 40-45% and NYHA class III and IV symptoms 3. Hypertension 4. Hyperlipidemia 5. Gli-rqozhng-wxisurllw diabetes mellitus 6. Current tobacco dependence 7. Family history of coronary artery disease Plan: 1. Continue aspirin, statin, Plavix, beta mary therapy 2. Will obtain a transthoracic echocardiogram this morning 3. Will discontinue temporary pacemaker wire 4. Increase activity, ambulate as tolerated 5. Likely will discharge to home this afternoon. Appointment will be made to follow up in one week for groin check at [facility], follow-up appointment to be made at cardiology/valve clinic for 30 day echo, K CCQ-12, and lab work Time with Patient: Greater than 30
--- NOTE | 2020-12-09 08:28 | XR ---
EXAMINATION TYPE: XR chest 1V portable DATE OF EXAM: 12/09/2020 COMPARISON: 12/08/2020 HISTORY: Postop TECHNIQUE: Single frontal view of the chest is obtained. FINDINGS: The heart is enlarged and there is a coarsened interstitium with no sizable pleural effusi on or pneumothorax. Diffuse osteopenia. A pacer lead again noted. IMPRESSION: Cardiomegaly with interstitial increased markings correlate for interstitial chronic nany g disease.
[2020-12-09] MEDS: METOPROLOL TARTRATE 12.5 MG TAB PO SCH (08:44)
[2020-12-09] MEDS ORDERED: CLOPIDOGREL 75 MG TAB PO SCH (09:00)
[2020-12-09] MEDS ORDERED: ASPIRIN 81 MG PO SCH (09:00)
[2020-12-09] MEDS ORDERED: ATORVASTATIN 40 MG TAB PO SCH (09:00)
[2020-12-09] MEDS ORDERED: METOPROLOL TARTRATE 12.5 MG TAB PO SCH (09:00)
[2020-12-09] MEDS ORDERED: MAGNESIUM HYDROXIDE 2,400 MG/10 ML CUP PO PRN (09:00)
[2020-12-09] MEDS ORDERED: bisacodyL 10 MG SUPP RECTAL PRN (09:00)
[2020-12-09] MEDS ORDERED: FUROSEMIDE 40 MG TAB PO SCH (09:00)
[2020-12-09] MEDS ORDERED: MULTIVITAMINS, THERA 1 EACH TAB PO SCH (09:00)
--- NOTE | 2020-12-09 09:23 | P.PN ---
Subjective Progress Note Date: 12/09/20 Principal diagnosis: Aortic valve stenosis This is a 70-year-old white male patient who has been following with Dr. Talavera, has a known history of aortic valve stenosis and has been followed in regards to that for several years. Patient reports worsening exertional dyspnea. He had an episode of congestive heart failure several months ago that required hospitalization. He has had no syncopal episodes, no orthopnea or paroxysmal nocturnal dyspnea. His transesophageal echocardiogram in April 2020 showed moderate left ventricular dysfunction and moderate to severe aortic valve stenosis. His most recent JAYSON in July 2020 showed severe aortic valve stenosis with a mean gradient of 50 mmHg and the peak velocity of 4.26 cm/s. Ejection fraction was 40-45% with mild tricuspid valve regurgitation and no significant mitral valve regurgitation. Patient underwent a heart catheterization on 06/07/2020 which showed normal coronary angiogram, mildly elevated LVEDP, and to peak gradient of 20 mmHg across the aortic valve. His other medical history significant for diabetes mellitus type 2, hypertension, hyperlipidemia, family history of coronary artery disease, patient is a current smoker, carries over [id number] smoking history, currently down to 3 cigarettes per day. His preop FEV1 was 2.48 L or 77% of predicted, FVC was 3.26 L or 74% of predicted, an FEV1/FVC ratio of 104% of predicted, consistent with mild restriction. Patient was referred to CT surgery and was found to be a good candidate for transcatheter aortic valve replacement. On 12/08/2020 patient under went transcatheter aortic valve replacement with a 34 mm core valve proplus, right subclavian transvenous temporary pacemaker placement, and placement of cerebral protection device via right radial arterial catheterization. Following his procedure patient is seen in intensive care unit, he is awake and alert, he is on room air with a pulse ox of 96%, vital signs are stable, patient is afebrile, he is breathing comfortably. In the sinus mechanism with a controlled rate, postprocedure chest x-ray shows prominence of interstitium bilaterally. Postop blood work shows white blood cell count of 6.3, hemoglobin is 10.6, platelet count is 128, INR is 1, sodium is 140, potassium is 4.7, chloride is 113, CO2 is 22, BUN of 30 creatinine is 1.14. 12/09/2020 patient seen in follow-up in the intensive care unit, today is postoperative day #1, status post transcatheter aortic valve replacement, placement of a temporary right subclavian pacemaker, and insertion of a cerebral protection device. Patient had no events or night, vitals have been stable, he is on room air sats of 96%, hemodynamically stable, he is on 9 normal saline at 20 ML per hour, no other drips. He continues on cefazolin per the surgical team. No fever or chills, she is in sinus mechanism, no arrhythmias overnight, this morning his blood pressure is 156/70, still has right subclavian temporary pacemaker and the external pacemaker is on VVI backup mode of 40 BPM. Neurologically intact, he is awake and alert and oriented 3, no complaints of chest pain, lung sounds are clear to auscultation, echocardiogram has been completed and the report is pending, this morning's chest x-ray reviewed showing cardiomegaly with interstitial increased markings. Objective - Vital Signs Vital signs: Vital Signs Temp 98.3 F 12/09/20 04:00 Pulse 69 12/09/20 08:00 Resp 15 12/09/20 08:00 BP 134/67 12/09/20 08:00 Pulse Ox 96 12/09/20 08:00 Intake & Output 12/08/20 12/09/20 12/09/20 18:59 06:59 18:59 Intake Total 2350 600 150 Balance 2350 600 150 Weight 88.3 kg Intake: IV 2350 600 50 Sodium Chloride 0.9% 1, 300 600 50 000 ml @ 50 mls/hr IV . Q20H ALIVIA Rx#:[id number] ceFAZolin 2 gm In Sodium 50 Chloride 0.9% 50 ml @ 100 mls/hr IVPB Q8HR ALIVIA Rx# :[id number] Intake, IV Titration 100 Amount Magnesium Sulfate-D5w Pmx 100 1 gm In Dextrose/Water 1 100ml.bag @ 100 mls/hr IVPB Q1H ALIVIA Rx#: [id number] Other: Voiding Method Toilet Toilet Toilet # Voids 1 1 ABP, PAP, CO, CI - Last Documented Arterial Blood Pressure 141/45 - Exam GENERAL EXAM: Alert, very pleasant, 70-year-old white male, on room air, with a pulse ox of 96%, resting in bed, comfortable in no apparent distress. HEAD: Normocephalic/atraumatic. EYES: Normal reaction of pupils, equal size. Conjunctiva pink, sclera white. NOSE: Clear with pink turbinates. THROAT: No erythema or exudates. NECK: No masses, no JVD, no thyroid enlargement, no adenopathy. CHEST: No chest wall deformity. Symmetrical expansion. Right upper chest temporary pacemaker in place to the external pacemaker, with backup rate of VVI 40 BPM intrinsic rhythm is sinus rhythm with a rate of 71 BPM, insertion site is clean dry and intact, soft, no evidence of hematoma LUNGS: Equal air entry with scattered rhonchi CVS: Regular rate and rhythm, normal S1 and S2, no gallops, no murmurs, no rubs ABDOMEN: Soft, nontender. No hepatosplenomegaly, normal bowel sounds, no guarding or rigidity. EXTREMITIES: No clubbing, no edema, no cyanosis, 2+ pulses and upper and lower extremities. Bilateral groin puncture sites are clean dry and intact, right radial arterial puncture site clean dry and intact, and TR band removed, right radial arterial puncture site is clean dry and intact, soft, no evidence of hematoma noted MUSCULOSKELETAL: Muscle strength and tone normal. SPINE: No scoliosis or deformity SKIN: No rashes CENTRAL NERVOUS SYSTEM: Alert and oriented -3. No focal deficits, tone is normal in all 4 extremities. PSYCHIATRIC: Alert and oriented -3. Appropriate affect. Intact judgment and insight. - Labs CBC & Chem 7: 12/09/20 04:08 12/09/20 04:08 Labs: Abnormal Lab Results - Last 24 Hours (Table) 12/03/20 12/08/20 12/08/20 Range/Units 10:22 09:12 11:57 RBC (4.30-5.90) m/uL Hgb (13.0-17.5) gm/dL Hct (39.0-53.0) % MCV (80.0-100.0) fL Plt Count (150-450) k/uL Lymphocytes # (1.0-4.8) k/uL ABG pH 7.33 L (7.35-7.45) ABG pO2 413 H (83-108) mmHg ABG O2 Saturation 100.0 H (94-97) % ABG Hematocrit 33 L (34.0-46.0) % ABG Potassium 4.8 H (3.4-4.5) mmol/L ABG Glucose 145 H (75-99) mg/dL ABG Lactic Acid 1.7 H (0.5-1.6) mmol/L Hemoglobin 10.7 L (13.0-17.5) gm/dL Chloride (98-107) mmol/L BUN (9-20) mg/dL Glucose (74-99) mg/dL POC Glucose (mg/dL) 114 H (75-99) mg/dL Calcium (8.4-10.2) mg/dL Total Bilirubin (0.2-1.3) mg/dL Total Protein (6.3-8.2) g/dL Albumin (3.5-5.0) g/dL Arterial Blood Potassium 4.8 H (3.4-4.5) mmol/L Arterial Blood Glucose 145 H (75-99) mg/dL Crossmatch See Detail 12/08/20 12/08/20 12/08/20 Range/Units 12:10 12:10 21:48 RBC 3.28 L (4.30-5.90) m/uL Hgb 10.6 L (13.0-17.5) gm/dL Hct 32.9 L (39.0-53.0) % MCV 100.3 H (80.0-100.0) fL Plt Count 128 L (150-450) k/uL Lymphocytes # (1.0-4.8) k/uL ABG pH (7.35-7.45) ABG pO2 (83-108) mmHg ABG O2 Saturation (94-97) % ABG Hematocrit (34.0-46.0) % ABG Potassium (3.4-4.5) mmol/L ABG Glucose (75-99) mg/dL ABG Lactic Acid (0.5-1.6) mmol/L Hemoglobin (13.0-17.5) gm/dL Chloride 113 H (98-107) mmol/L BUN 30 H (9-20) mg/dL Glucose 108 H (74-99) mg/dL POC Glucose (mg/dL) 264 H (75-99) mg/dL Calcium 8.2 L (8.4-10.2) mg/dL Total Bilirubin 0.1 L (0.2-1.3) mg/dL Total Protein 5.1 L (6.3-8.2) g/dL Albumin 3.1 L (3.5-5.0) g/dL Arterial Blood Potassium (3.4-4.5) mmol/L Arterial Blood Glucose (75-99) mg/dL Crossmatch 12/09/20 12/09/20 12/09/20 Range/Units 04:08 04:08 06:38 RBC 3.19 L (4.30-5.90) m/uL Hgb 10.8 L (13.0-17.5) gm/dL Hct 31.9 L (39.0-53.0) % MCV (80.0-100.0) fL Plt Count 130 L (150-450) k/uL Lymphocytes # 0.7 L (1.0-4.8) k/uL ABG pH (7.35-7.45) ABG pO2 (83-108) mmHg ABG O2 Saturation (94-97) % ABG Hematocrit (34.0-46.0) % ABG Potassium (3.4-4.5) mmol/L ABG Glucose (75-99) mg/dL ABG Lactic Acid (0.5-1.6) mmol/L Hemoglobin (13.0-17.5) gm/dL Chloride 108 H (98-107) mmol/L BUN 24 H (9-20) mg/dL Glucose 218 H (74-99) mg/dL POC Glucose (mg/dL) 182 H (75-99) mg/dL Calcium (8.4-10.2) mg/dL Total Bilirubin <0.1 L (0.2-1.3) mg/dL Total Protein 5.6 L (6.3-8.2) g/dL Albumin 3.4 L (3.5-5.0) g/dL Arterial Blood Potassium (3.4-4.5) mmol/L Arterial Blood Glucose (75-99) mg/dL Crossmatch Assessment and Plan Plan: Assessment: #1. Progressive and symptomatic severe aortic valve stenosis, status post transcatheter aortic valve replacement with 34 mm core valve proplus, right subclavian transvenous temporary pacemaker placement, and placement of a cerebral protection device via the right radial arterial catheterization, on 12/08/2020, post-op day #1 #2. Chronic congestive heart failure, with reduced systolic function and EF of 40-45% #3. History of hypertension #4. Hyperlipidemia #5. Diabetes mellitus #6. Family history of coronary artery disease #7. Chronic and ongoing history of smoking, carries [id number] smoking history, currently down to 3 cigarettes a day. Preop FEV1 was 2.48 L or 77% of predicted, FVC of 3.26 L or 74% of predicted, and FEV1 to FVC ratio of 104 consistent with mild restriction Plan: Patient is doing well on postoperative day #1 Hemodynamically stable in sinus mechanism No arrhythmias overnight Neurologically intact Breathing comfortably Chest x-ray reviewed showing mild interstitial prominence Oral Lasix has been started per CT surgery Continue breathing treatments He is working on since from her achieving [id number] today Tolerating ambulation Echocardiogram report is pending Possible discharge home today I performed a history & physical examination of the patient and discussed their management with my nurse practitioner, Monie Kay. I reviewed the nurse practitioner's note and agree with the documented findings and plan of care. Lung sounds are positive for diminished breath sounds. The findings and the i mpression was discussed with the patient. I attest to the documentation by the nurse practitioner. Time with Patient: Less than 30
[2020-12-09 11:03] LABS: Glucose,Whole Blood 249 mg/dL (75-99)
--- NOTE | 2020-12-09 12:12 | ECHOF ---
Referral Reason:post TAVR MEASUREMENTS -------- HEIGHT: 152.4 cm WEIGHT: 85.7 kg BP: Ao Diam: 2.2 cm (2.0 - 3.7) AV maxP.84 mmHg AV meanP.48 mmHg FINDINGS -------- Sinus rhythm. Pacerwire seen in RV and RA. Pt had Dayday & TAVR 12/08/20: Limited study for follow up of aortic valve. LV size, wall thickness and systolic function are normal, with an EF greater than 55%. There is no evidence of aortic regurgitation. Peak/mean gradient across the Aortic Valve is 15.84mm Hg / 8.48mmHg. TAVR done There is no pericardial effusion. CONCLUSIONS -------- 1. Pacerwire seen in RV and RA. 2. Pt had Dayday & TAVR 12/08/20: Limited study for follow up of aortic valve. 3. LV size, wall thickness and systolic function are normal, with an EF greater than 55%. 4. There is no evidence of aortic regurgitation. 5. Peak/mean gradient across the Aortic Valve is 15.84mmHg / 8.48mmHg. 6. TAVR done 7. There is no pericardial effusion. HEALTH UNIT COORDINATOR: Lilibeth Morales RDCS
[2020-12-09] MEDS: GLIMEPIRIDE 2 MG TAB PO SCH (13:15)
--- NOTE | 2020-12-09 13:25 | P.DS ---
Providers Date of admission: 12/08/20 06:30 Expected date of discharge: 12/09/20 Attending physician: Frandy Mcallister Consults: 12/08/20 12:03 Consult Physician Routine Consulting Provider: Mitch Paula Consult Reason/Comments: Hospital Administrator Consult: post cardiac surgery Do you want consulting provider notified?: Yes Consult Physician Routine Consulting Provider: Romie Raymond Consult Reason/Comments: TAVR Do you want consulting provider notified?: Already Contacted Primary care physician: Rafael Valdez MD Hospital Course: FINAL DIAGNOSES: 1. Severe symptomatic aortic stenosis 2. History of chronic systolic heart failure with EF 40-45%, NYHA class III and IV symptoms 3. History of hypertension 4. History of hyperlipidemia, treated 5. [id number] diabetes mellitus 6. Current tobacco dependence 7. Family history of coronary artery disease PRINCIPAL PROCEDURE: 1. Transcatheter aortic valve replacement with 34 mm Core-Valve Evolut-Pro Plus via percutaneous transfemoral approach 2. Right subclavian transvenous temporary pacing wire placement 3. Placement of sentinel cerebral protection device via right radial arterial catheterization 4. Transesophageal echocardiography 5. Access and repair of right femoral artery access site by Perclose device 6. Aortoiliac angiogram, aortic arch angiogram 7. Selective bilateral common femoral artery angiogram HISTORY OF PRESENT ILLNESS: This is a pleasant 70-year-old male patient who follows on an outpatient basis with Dr. Rafael Valdez for primary care and Dr. Frandy Mcallister for cardiology. He has a known history of severe aortic stenosis and has been symptomatic with increased exertional dyspnea. He has undergone workup for aortic valve replacement including JAYSON demonstrating mean gradient 32 mmHg with moderate aortic stenosis. Follow-up transthoracic echocardiogram demonstrated severe aortic stenosis with aortic valve area 0.7 cm , peak velocity 4.26 m/s, and mean gradient 50 mmHg. Cardiac catheterization demonstrated no evidence of obstructive coronary artery disease. Computed tomography scan was performed demonstrating good femoral axis bilaterally and valve was sized to a 34 mm Core-Valve. He was seen in the valve clinic by Dr. Gonsalez and Dr. Sharp, was felt to be very high risk for surgical aortic valve replacement, and recommendation was made for transcatheter aortic valve replacement. The usual perioperative course was discussed in detail with the patient and his , all risks and benefits were explained, all questions were answered, and consent was obtained to proceed with surgery. The patient was scheduled for TAVR after obtaining dental clearance. HOSPITAL COURSE: The patient was brought to the hospital on 12/08/2020, taken to the extended stay area, prepared in the usual fashion, and subsequently taken to the [facility] where Dr. Mcallister and Dr. Raymond completed TAVR procedure under general anesthesia with fluoroscopy and JAYSON. The valve was deployed under rapid ventricular pacing and proceeded without event. At the end of the procedure there was no evidence of gradient, hemodynamics were felt to be excellent, and there was no evidence of significant perivalvular leak. Upon completion of the procedure the patient extubated and was transferred to the cardiovascular intensive care unit where he was recovered and monitored hemodynamically. His oxygen was titrated down, he was tolerating oral diet, his pain was controlled, follow-up TTE demonstrated normal left ventricular systolic function with EF >55%, no aortic regurgitation, and mean gradient across the aortic valve 8.48 mmHg, and he was ready to be discharged to home on postoperative day #1. He received written and verbal instruction regarding his medications, activity restrictions, signs and symptoms requiring physician notification, and follow-up appointments. COMPLICATIONS: The patient experienced no postoperative complications. Patient Condition at Discharge: Stable Plan - Discharge Summary Discharge Rx Participant: No New Discharge Prescriptions: New Clopidogrel [Plavix] 75 mg PO DAILY #30 tab Acetaminophen Tab [Tylenol] 650 mg PO Q4HR PRN tab PRN Reason: Fever And/ Or Mild Pain (1-3) Continue Aspirin EC [Ecotrin Low Dose] 81 mg PO DAILY Glimepiride [Amaryl] 2 mg PO DAILY@1200 Cinnamon Bark [Cinnamon] 500 mg PO W/SUPPER Furosemide [Lasix] 40 mg PO DAILY #30 tab Metoprolol Succinate (ER) [Toprol XL] 25 mg PO DAILY #30 tab.er.24h Atorvastatin [Lipitor] 40 mg PO HS Multivitamins, Thera [Multivitamin (formulary)] 1 tab PO DAILY Acetaminophen/Diphenhydramine [Tylenol PM 500-25mg] 1 tab PO HS metFORMIN HCL 500 mg PO BID #0 Discharge Medication List Aspirin EC [Ecotrin Low Dose] 81 mg PO DAILY 05/06/20 [History] Cinnamon Bark [Cinnamon] 500 mg PO W/SUPPER 05/06/20 [History] Glimepiride [Amaryl] 2 mg PO DAILY@1200 05/06/20 [History] Furosemide [Lasix] 40 mg PO DAILY #30 tab 05/07/20 [Rx] Metoprolol Succinate (ER) [Toprol XL] 25 mg PO DAILY #30 tab.er.24h 05/07/20 [Rx] Atorvastatin [Lipitor] 40 mg PO HS 05/13/20 [History] Multivitamins, Thera [Multivitamin (formulary)] 1 tab PO DAILY 10/29/20 [History] Acetaminophen/Diphenhydramine [Tylenol PM 500-25mg] 1 tab PO HS 12/02/20 [History] Acetaminophen Tab [Tylenol] 650 mg PO Q4HR PRN tab 12/09/20 [Rx] Clopidogrel [Plavix] 75 mg PO DAILY #30 tab 12/09/20 [Rx] metFORMIN HCL 500 mg PO BID #0 12/09/20 [Rx] Follow up Appointment(s)/Referral(s): Kala Forman NPC [Nurse Practitioner] - 01/14/21 1:30 pm (to be seen in [facility], [address] [place] [address], [address] (in [facility]) for labs and post TAVR paperwork) Rafael Valdez MD [Primary Care Provider] - As Needed Frandy Mcallister MD [STAFF PHYSICIAN] - 12/21/20 4:00 pm (appointment 12/21 is for groin check, appointment also made for 01/14/21 @ 1:45 pm for post TAVR echo) Activity/Diet/Wound Care/Special Instructions: DISCHARGE INSTRUCTIONS: 1. No driving for 1 week, or until physician gives their ok. 2. No lifting, pushing, or pulling more than 5-10 pounds for 1 week. 3. Hold both groins when you cough or sneeze for the next 2 weeks. Bruising is common, but report increased swelling, pain or fever >101F 4. Shower daily. No pool, hot tub, or bathtub for 1 week 5. No powders, lotions, ointments on incisions. 6. No straining, including for bowel movements. Use stool softner if necessary 7. Stairs are not an issue. Go slowly, using handrail and take 1 step at a time. Ambulate several times daily 8. Continue pain control per as needed orders. 9. Take only the medications listed on your discharge form 10. Eat low salt (limited to 2 grams or 2000 milligrams) daily, avoid adding salt, avoid canned/processed foods 11. Take your weight daily in the morning and record, bring with you to your follow up appointments 12. Keep all follow up appointments. You will need a valve clinic appointment at 30 days and 1 year post procedure for follow up 13. You have been referred to and are expected to begin Cardiac Rehab in approximately 4 weeks. 14. You will need antibiotics prior to any dental work, including cleanings, and any surgeries to prevent Endocarditis (bacterial infection in your heart) For any questions or concerns please call your valve coordinators: Kala @ or Kyaw @ Discharge Disposition: HOME SELF-CARE
[2020-12-09 14:24] VITALS: BMI 27.9
[2020-12-09 15:32] VITALS: BP 126/54; PULSE 70; RESP 22
[2020-12-09] MEDS ORDERED: SENNOSIDES-DOCUSATE SODIUM 1 EACH TAB PO SCH (21:00)
== END 2020-12-09 14:45 | disposition home or self-care (01) | DRG 267 ==
LOC: 2ORMAIN 06:30 → 2SICU 11:40
PROVIDERS: ADMIT Thoracic Surgery (Cardiothoracic Vascular Surgery); ATTEND Internal Medicine Interventional Cardiology
PROC: B41D1ZZ Fluoroscopy of Aorta and Bilateral Lower Extremity Arteries using Low Osmolar Contrast (ICD-10-PCS; 2020-12-08)
PROC: B24BZZ4 Ultrasonography of Heart with Aorta, Transesophageal (ICD-10-PCS; 2020-12-08)
PROC: X2A5312 Cerebral Embolic Filtration, Dual Filter in Innominate Artery and Left Common Carotid Artery, Percutaneous Approach, New Technology Group 2 (ICD-10-PCS; principal; 2020-12-08 08:30)
PROC: 02RF38Z Replacement of Aortic Valve with Zooplastic Tissue, Percutaneous Approach (ICD-10-PCS; principal; 2020-12-08 08:30)
DX: I08.2 Rheumatic disorders of both aortic and tricuspid valves (principal); I50.22 Chronic systolic (congestive) heart failure; I11.0 Hypertensive heart disease with heart failure; E11.9 Type 2 diabetes mellitus without complications; Z00.6 Encounter for examination for normal comparison and control in clinical research program; Z20.822 Contact with and (suspected) exposure to COVID-19; I25.10 Atherosclerotic heart disease of native coronary artery without angina pectoris; E78.5 Hyperlipidemia, unspecified; F17.210 Nicotine dependence, cigarettes, uncomplicated; Z79.82 Long term (current) use of aspirin; Z79.84 Long term (current) use of oral hypoglycemic drugs; Z79.899 Other long term (current) drug therapy; Z90.89 Acquired absence of other organs; Z98.42 Cataract extraction status, left eye; Z98.41 Cataract extraction status, right eye; Z87.39 Personal history of other diseases of the musculoskeletal system and connective tissue; Z86.69 Personal history of other diseases of the nervous system and sense organs; Z87.2 Personal history of diseases of the skin and subcutaneous tissue; Z86.31 Personal history of diabetic foot ulcer; Z89.022 Acquired absence of left finger(s); Z98.890 Other specified postprocedural states; Z82.49 Family history of ischemic heart disease and other diseases of the circulatory system; Z80.3 Family history of malignant neoplasm of breast; Z80.0 Family history of malignant neoplasm of digestive organs
CPT/HCPCS: 33361; 36415; 71045; 80053; 82330; 82805; 83735; 85025; 85027; 85610; 85730; 86850; 86900; 86901; 86920; 87070; 87635; 88305; 93005; 93308; 93312; 93320; 93325; 94640

== ENCOUNTER → 2021-01-14 | Outpatient (CLI) | payer MEDICARE ==
[2021-01-14 19:28] LABS: Basophils # (A) 0.08 X 10*3/uL (0.00-0.10); Eosinophils # (A) 0.32 X 10*3/uL (0.04-0.35); HCT 36.4 % (39.6-50.0); HGB 11.9 g/dL (13.0-17.0); Lymphocytes # (A) 1.22 X 10*3/uL (0.90-5.00); Lymphocytes % (A) 15.2 %; MCH 33.6 pg (27.0-32.0); MCHC 32.7 g/dL (32.0-37.0); MCV 102.8 fL (80.0-97.0); Mean Platelet Volume 11.3 fL (9.5-12.2); Monocytes # (A) 0.61 X 10*3/uL (0.20-1.00); Monocytes % (A) 7.6 %; Neutrophils # (A) 5.77 X 10*3/uL (1.80-7.70); Neutrophils % (A) 71.7 %; Platelet Count 185 X 10*3/uL (140-440); RBC 3.54 X 10*6/uL (4.40-5.60); RDW 13.4 % (11.5-14.5); WBC 8.04 X 10*3/uL (4.50-10.00)
[2021-01-14 23:58] LABS: African American GFR (CKD) 53.5 (60.0-200.0); Anion Gap 9.5 mmol/L (4.00-12.00); Calcium 9.1 mg/dL (8.7-10.3); Carbon Dioxide 24.5 mmol/L (21.6-31.8); Non-African American GFR(CKD) 46.2 (60.0-200.0)
== END | disposition home or self-care (01) ==
LOC: LABWHC1 13:58
PROVIDERS: ATTEND Nurse Practitioner Acute Care
DX: Z95.4 Presence of other heart-valve replacement (principal)
CPT/HCPCS: 36415; 80048; 85025

== ENCOUNTER → 2022-01-23 | Outpatient (CLI) | payer MEDICARE ==
--- NOTE | 2022-01-23 17:31 | CA ---
Transthoracic Echo Report Name: Romie Romero Age: 72 Gender: M : 1950 Exam Date: 01/23/2022 14:02 Exam Location: [facility] Ht (in): 70 Wt (lb): 186 Ordering Physician: Romie Raymond MD Attending/Referring Phys: Romie Raymond MD Mechanical Meter Tester Tracey Obrien, [facility] Procedure CPT: Indications: I35.1 Cardiac Hx: Technical Quality: Fair Contrast 1: Total Dose (mL): Contrast 2: Total Dose (mL): MEASUREMENTS (Male / Female) Normal Values 2D ECHO LV Diastolic Diameter PLAX 4.5 cm 4.2 - 5.9 / 3.9 - 5.3 cm LV Systolic Diameter PLAX 4.3 cm IVS Diastolic Thickness 1.5 cm 0.6 - 1.0 / 0.6 - 0.9 cm LVPW Diastolic Thickness 1.8 cm 0.6 - 1.0 / 0.6 - 0.9 cm LV Relative Wall Thickness 0.7 RV Internal Dim ED PLAX 3.5 cm LA Volume 78.4 cm??? 18 - 58 / 22 - 52 cm??? M-MODE Aortic Root Diameter MM 2.1 cm DOPPLER AV Peak Velocity 200.4 cm/s AV Peak Gradient 16.1 mmHg AV Mean Velocity 152.4 cm/s AV Mean Gradient 11.1 mmHg AV Velocity Time Integral 38.3 cm LVOT Peak Velocity 81.0 cm/s LVOT Peak Gradient 2.6 mmHg MV Area PHT 2.6 cm??? Mitral E Point Velocity 53.2 cm/s Mitral A Point Velocity 133.1 cm/s Mitral E to A Ratio 0.4 MV Deceleration Time 289.3 ms MV E' Velocity 2.9 cm/s Mitral E to MV E' Ratio 18.5 TR Peak Velocity 251.9 cm/s TR Peak Gradient 25.4 mmHg Right Ventricular Systolic Press 30.4 mmHg FINDINGS Left Ventricle Moderately increased left ventricular wall thickness. Normal left ventricular systolic function with no obvious regional wall motion abnormalities. Left ventricular ejection fraction is estimated at 55-60 %. Right Ventricle Mild right ventricular dilatation. Right ventricular systolic pressure within normal limits. Right Atrium Normal right atrial size. Left Atrium Moderately increased left atrial volume. Mitral Valve Mild mitral annular calcification. Mild mitral regurgitation. Aortic Valve S/P TAVR. Normally functioning bioprosthetic aortic valve without stenosis with a peak velocity of 200 cm/s, peak gradient 16 mmHg, mean gradient 11 mmHg. No aortic regurgitation. Tricuspid Valve Structurally normal tricuspid valve. Mild tricuspid regurgitation. Pulmonic Valve Trace pulmonic regurgitation. Pericardium No pericardial effusion. Aorta Normal size aortic root and proximal ascending aorta. CONCLUSIONS Left ventricular hypertrophy with preserved function Mildly enlarged right ventricle with preserved function Bioprosthetic valve in stable position with mildly increased gradients, acceptable Previewed by: Dr. Amado Parsons MD (Electronically Signed) Final Date: 23 January 2022 17:30
[2022-01-23 22:38] LABS: Basophils # (A) 0.08 X 10*3/uL (0.00-0.10); Eosinophils # (A) 0.19 X 10*3/uL (0.04-0.35); Eosinophils % (A) 2.4 %; HCT 39.6 % (39.6-50.0); HGB 12.5 g/dL (13.0-17.0); Immature Grans, Automated 0.4 %; Lymphocytes # (A) 1.25 X 10*3/uL (0.90-5.00); Lymphocytes % (A) 15.8 %; MCH 32.1 pg (27.0-32.0); MCHC 31.6 g/dL (32.0-37.0); MCV 101.8 fL (80.0-97.0); Mean Platelet Volume 11.2 fL (9.5-12.2); Monocytes # (A) 0.56 X 10*3/uL (0.20-1.00); Monocytes % (A) 7.1 %; NRBC Per 100 WBC 0 /100 WBCS (0.0-0.0); Neutrophils # (A) 5.79 X 10*3/uL (1.80-7.70); Neutrophils % (A) 73.3 %; Platelet Count 192 X 10*3/uL (140-440); RBC 3.89 X 10*6/uL (4.40-5.60); RDW 12.9 % (11.5-14.5)
[2022-01-23 23:27] LABS: African American GFR (CKD) 48.8 (60.0-200.0); Anion Gap 12.6 mmol/L (10.00-18.00); BUN/Creat Ratio 26.69 Ratio (12.00-20.00); Blood Urea Nitrogen 42.7 mg/dL (9.0-27.0); Calcium 9.1 mg/dL (8.7-10.3); Carbon Dioxide 24.4 mmol/L (20.0-27.5); Non-African American GFR(CKD) 42.1 (60.0-200.0); Potassium 4.6 mmol/L (3.5-5.5)
== END | disposition home or self-care (01) ==
LOC: RADECHMAIN 13:56
PROVIDERS: ATTEND Thoracic Surgery (Cardiothoracic Vascular Surgery)
DX: I35.0 Nonrheumatic aortic (valve) stenosis (principal)
CPT/HCPCS: 80048; 85025; 93306